=== PATIENT | female | born 1960 | race Caucasian/White ===

== ENCOUNTER 2020-12-10 15:22 | Emergency (ER) | payer MEDICARE, MEDICAID ==
[~2020-12-10] VITALS: Ht 170.2 cm; Wt 104.8 kg
[~2020-12-10 15:22] MED LIST: ACID CONTROL150 MG PO; ADULT LOW DOSE81 MG PO; AMLODIPINE BESY10 MG PO; DILAUDID2 MG PO; HYDROCHLOROTHIA25 MG PO; HYDROCODON-ACE1 EA11 PO; LEVOTHYROXINE200 MCG PO; LIPITOR40 MG PO; METOPROLOL SUCC25 MG PO; NORCO 7.5-3251 EACH PO; OMEPRAZOLE40 MG PO; PAROXETINE HCL20 MG PO; PROVENTIL HFA6.7 GM INH; ZYRTEC10 M3 PO
--- OUTSIDE RECORDS SUMMARY | 2020-12-10 15:24 | XMS ---
PreManage Notification: DEL TELLEZ Security Assembler Movement Events No recent Security Events currently on file CRITERIA MET - PDM CARE PROVIDERS CARLY WHITESIDE Physician Assistant Kunal LAYNE PHONE: [phone] Andrew has no Care Guidelines for this patient. E.D. V[facility]IT COUNT (12 MO.) [facility] TOTAL 5 NOTE: Visits indicate total known visits. ED/UCC VISIT TRACKING (12 MO.) 12/10/2020 15:23 [facility] [place] TYPE: Emergency COMPLAINT: - RIGHT SIDE PAIN/ INJ 10/17/2020 08:05 [facility] [place] TYPE: Emergency DIAGNOSES: - Hyperlipidemia, unspecified - Type 2 diabetes mellitus with hyperglycemia - Other custodial (current) drug therapy - Allergy status to other drugs, medicaments and biological substances - Arthrodesis status - Allergy status to narcotic agent - Strain of other muscles, fascia and tendons at shoulder and upper arm level, left arm, initial encounter - Other and unspecified overexertion or strenuous movements or postures, initial encounter - 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 - Unspecified place or not applicable - Essential (primary) hypertension - Hypothyroidism, unspecified 06/03/2020 09:15 [facility] [place] TYPE: Emergency DIAGNOSES: - ABD PAIN - Epigastric pain 05/23/2020 10:02 [facility] [place] TYPE: Emergency DIAGNOSES: - Epigastric pain - abdominal pain 05/22/2020 10:16 [facility] [place] [facility] [place] TYPE: Emergency COMPLAINT: - CHEST PAIN DIAGNOSES: - Essential (primary) hypertension - Hypothyroidism, unspecified - 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
[2020-12-10] MEDS ORDERED: LISINOPRIL10 MG PO (16:21)
[2020-12-10] MEDS ORDERED: TRULICITY1.5 MG/0.5 SUB-Q (16:21)
[2020-12-10] MEDS ORDERED: PANTOPRAZOLE SO40 MG PO (16:22)
[2020-12-10] MEDS ORDERED: METFORMIN HCL500 M1 PO (16:22)
[2020-12-10] MEDS ORDERED: SUCRALFATE1 GM PO (16:23)
[2020-12-10] MEDS ORDERED: ULTRAM50 MG PO (19:20)
== END 2020-12-10 19:35 | disposition home or self-care (01) ==
LOC: ED 15:22
DX: S39.011A Strain of muscle, fascia and tendon of abdomen, initial encounter (principal); E11.9 Type 2 diabetes mellitus without complications; I10 Essential (primary) hypertension; E78.5 Hyperlipidemia, unspecified; E03.9 Hypothyroidism, unspecified; F17.200 Nicotine dependence, unspecified, uncomplicated; W19.XXXA Unspecified fall, initial encounter; Z88.5 Allergy status to narcotic agent; Z88.8 Allergy status to other drugs, medicaments and biological substances; Z79.899 Other long term (current) drug therapy; Z79.84 Long term (current) use of oral hypoglycemic drugs; Z79.82 Long term (current) use of aspirin
CPT/HCPCS: 74177; 80053; 81001; 83690; 85025; 96374; 96375; 99284-25; J1885; J2405; J7030; Q9967

== ENCOUNTER 2024-04-02 08:50 | Inpatient (IN) | payer MEDICARE, OTHER ==
[~2024-04-02] VITALS: Ht 170.2 cm; Wt 104.5 kg
[~2024-04-02 08:50] MED LIST changes: -ACID CONTROL150 MG PO; -ADULT LOW DOSE81 MG PO; -AMLODIPINE BESY10 MG PO; +CEFAZOLIN SODIUM 2 GM/20 ML SYR IV SCH; -DILAUDID2 MG PO; +DULOXETINE HCL 60 MG CAP PO ONE; +GABAPENTIN 600 MG TAB PO SCH; -HYDROCHLOROTHIA25 MG PO; -HYDROCODON-ACE1 EA11 PO; +HYDROmorphone HCL 2 MG TAB PO ONE; +IBLOOD GLUCOSE TEST STRIP 1 EA TEST VI PRN; +INTRA-ARTICULAR ANALGESIC INJECTION XX SCH; +LACTATED RINGER'S 1,000 ML IV SCH; -LEVOTHYROXINE200 MCG PO; +LIDOCAINE HCL 1% 5 ML SDV INJ ONE; -LIPITOR40 MG PO; -METOPROLOL SUCC25 MG PO; -NORCO 7.5-3251 EACH PO; -OMEPRAZOLE40 MG PO; +OXYCODONE HCL 5 MG TAB PO SCH; +PANTOPRAZOLE SODIUM 40 MG TABEC PO SCH; -PAROXETINE HCL20 MG PO; -PROVENTIL HFA6.7 GM INH; +ROPIVACAINE IN 0.9% SOD CHL/PF 545 ML ELS.PMP.HR IRRIGATION SCH; +Ropivacaine HCl 20 MG/10 ML AMP ONE; +SODIUM CHLORIDE 0.9% 0 ML IV ONE; +TRANEXAMIC ACID IN NACL,ISO-OS 1,000 MG/100 ML PIGGYBACK IV SCH; -ZYRTEC10 M3 PO; +ondansetron HCL 4 MG TAB PO SCH
[2024-04-02] MEDS ORDERED: Ropivacaine HCl 20 MG/10 ML AMP ONE (09:43)
[2024-04-02] MEDS ORDERED: MIDAZOLAM HCL 2 MG/2 ML VIAL ONE (10:04)
[2024-04-02] MEDS ORDERED: dexmedeTOMIDine HCl 200 MCG/2 ML VIAL ONE (10:05)
[2024-04-02] MEDS ORDERED: Ropivacaine HCl 0.5% 30 ML VIAL ONE (10:05)
[2024-04-02] MEDS ORDERED: DEXAMETHASONE SOD PHOS 4 MG/ML VIAL ONE (10:05)
[2024-04-02] MEDS ORDERED: SODIUM CHLORIDE 0.9% 20 ML IV ONE (10:05)
[2024-04-02] MEDS ORDERED: LIDOCAINE HCL 2% 5 ML SDV ONE ×2 (10:05→10:40)
[2024-04-02] MEDS ORDERED: propofoL 200 MG/20 ML VIAL ONE ×3 (10:40→13:06)
[2024-04-02] MEDS ORDERED: ondansetron HCL 4 MG/2 ML VIAL ONE (10:40)
[2024-04-02] MEDS ORDERED: OXYCODONE HCL 5 MG TAB PO PRN (11:30)
[2024-04-02] MEDS ORDERED: KETOROLAC TROMETHAMINE 30 MG/ML VIAL IV PRN (11:30)
[2024-04-02] MEDS ORDERED: LIDOCAINE HCL 2% 20 MG/ML VIAL INJ ONE (11:57)
[2024-04-02] MEDS ORDERED: TRANEXAMIC ACID 1,000 MG/10 ML AMP ONE (12:50)
[2024-04-02] MEDS ORDERED: LACTATED RINGER'S 1,000 ML IV ONE (13:03)
[2024-04-02] MEDS ORDERED: NALOXONE HCL 0.4 MG SYR IV PRN (13:30)
[2024-04-02] MEDS ORDERED: fentaNYL citrate 50 MCG/ML SDV IV PRN (13:30)
[2024-04-02] MEDS ORDERED: droPERidol 5 MG/2 ML VIAL IV PRN (13:30)
[2024-04-02] MEDS ORDERED: IBLOOD GLUCOSE TEST STRIP 1 EA TEST VI PRN (13:30)
[2024-04-02] MEDS ORDERED: PROCHLORPERAZINE EDISYLATE 10 MG/2 ML VIAL IV PRN (13:30)
[2024-04-02] MEDS ORDERED: ondansetron HCL 4 MG/2 ML VIAL IV PRN (13:30)
[2024-04-02] MEDS ORDERED: HYDROmorphone HCL 1 MG/ML SYR IV PRN (13:30)
[2024-04-02] MEDS ORDERED: ALBUTEROL/IPRATROPIUM 3 ML NEB INH ONE (14:00)
--- NOTE | 2024-04-02 14:15 | NUR ---
04/02/24 1415 Mireille Johnson 1342-PT ARRIVES TO PACU VIA STRETCHER, RESTING SEMI FOWLERS. PT RESPONSIVE TO TACTILE STIMULI BUT RESTS W/ EYES CLOSED. VSS ON 6L VIA MASK. 1345-PT DESATING TO 84%, O2 INCREASED TO 10L SATS IMPROVED TO 92%, PT ENCOURAGED TO DEEP BREATH AND COUGH. 1350-PT DESATTING TO 74%, O2 INCREASED TO 15L AND PT FOLLOWING INSTRUCTIONS TO DEEP BREATH AND COUGH. SATS IMPROVED TO 97%. 1355-AUTOMOTIVE POWER ELECTRONICS ENGINEER AT BEDSIDE FOR RT KNEE POST OP XRAY. CRYO CUFF APPLIED TO RT KNEE PER ORDER. 1400-RT AT BEDSIDE TO ADMINISTER DUONEB PER ORDERS FROM [facility]. 1405-PT AWAKENS EASILY O2 TITRATED TO 10L, VS REMAIN STABLE. 1415-O2 TITRATED TO 6L, VS REMAIN STABLE. PT DEEP BREATHING AND COUGHING W/O PROMPTING. PT DENIES PAIN OR NAUSEA.
[2024-04-02] MEDS ORDERED: TRANEXAMIC ACID IN NACL,ISO-OS 1,000 MG/100 ML PIGGYBACK IV SCH (14:23)
--- NOTE | 2024-04-02 14:30 | NUR ---
PT ARRIVES TO DS DEPT FROM PACU VIA STRETCHER. PT REPORTS NO PAIN OR NAUSEA AT THIS TIME. PT IS A&O AND ON RA W/O2 >90%. RESPIRATIONS EVEN AND UNLABORED AT THIS TIME. REPORT RECEIVED FROM INA GORE, NO FAMILY AT BEDSIDE AT THIS TIME. DRESSING C/D/I. NISREEN HOSE, FOOT PUMPS, HEEL PROTECTORS, CRYO CUFF, AND ONQ @ [address] LUNCH ORDER PLACED. PT TOLERATING ICE WATER AND PUDDING W/NO ONSET OF NAUSEA OR DIFFICULTY SWALLOWING. CALL LIGHT WITHIN REACH. AUNT BROUGHT IN FROM HALLWAY AND SITTING AT BEDSIDE.
[2024-04-02] MEDS ORDERED: CEFAZOLIN SODIUM 2 GM/20 ML SYR IV SCH (15:00)
[2024-04-02] MEDS ORDERED: ACETAMINOPHEN 500 MG TAB PO SCH (15:00)
--- NOTE | 2024-04-02 15:15 | NUR ---
PT CONSUMED 50% OF LUNCH AND REPORTS FULL. NO ACUTE CHANGES FROM PREVIOUS ASSESSMENT. PT PROVIDED INCENTIVE SPIROMETER AND DEMONSTRATES CORRECT USAGE X3. PT CONTINUES TO TAKE DEEP BREATHS AND GOOD COUGHS. CALL LIGHT WITHIN REACH, PT REPORTS NO FURTHER QUESTIONS OR NEEDS AT THIS TIME.
--- NOTE | 2024-04-02 15:30 | NUR ---
THIS RN IN ROOM FOR ASSESSMENT AND VS. DRESSING C/D/I. SPINAL RESOLVED. PT ABLE TO MOVE FEET WITHOUT DIFFICULTY. AUNT REMAINS AT BEDSIDE. PT REPORTS PAIN IS 7 OR 8/10 AND STATES TOLERABLE, BUT WOULD LIKE TO GET SOMETHING ON BOARD IF POSSIBLE. THIS RN RECEIVES VO FROM EZEKIEL BRADY FOR 4 MG ORAL DILAUDID. TYLENOL AND ANCEF GIVEN (SEE EMAR). CALL LIGHT WITHIN REACH, PT REPORTS NO FURTHER NEEDS OR QUESTIONS AT THIS TIME.
[2024-04-02] MEDS ORDERED: HYDROmorphone HCL 4 MG TAB PO PRN (15:45)
--- NOTE | 2024-04-02 15:54 | NUR ---
[facility] W/PHYSICAL THERAPY IN ROOM TALKING W/PT AT THIS TIME.
--- NOTE | 2024-04-02 16:25 | NUR ---
PT BACK FROM PHYSICAL THERAPY. PER [facility] W/PHYSICAL THERAPY. PT HAS NOT PASSED. PT REPORTS NO CHANGE IN PAIN, BUT DECLINES NEED FOR PRN DILAUDID AT THIS TIME. NO ACUTE CHANGES TO DRESSING FROM PREVIOUS ASSESSMENT. VS TAKEN. EZEKIEL BRADY UPDATED ON PT CONDITION AND SPEAKS W/PT REGARDING UNABLE TO PASS PT. VO FOR INPATIENT ADMISSION RECEIVED AT THIS TIME. VO ALSO RECEIVED FROM [facility] 1 OR 2 TIMES A DAY INSTEAD OF PAROXETINE, ALONG WITH CONTINUATION OF ALL HOME MEDS. PT UPDATED ON INPATIENT STATUS AND AGREEABLE TO PLAN OF CARE. CONVICT GUARD GETTING ROOM # AT THIS TIME. CALL LIGHT WITHIN REACH, PT STATES NO FURTHER NEEDS OR QUESTIONS AT THIS TIME.
[2024-04-02] MEDS ORDERED: DEXTROSE 50% 50 ML SYR IV PRN ×2 (17:30)
[2024-04-02] MEDS ORDERED: DEXTROSE 5% 1,000 ML IV PRN (17:30)
[2024-04-02] MEDS ORDERED: GLUCAGON,HUMAN RECOMBINANT 1 MG/ML VIAL SUB-Q PRN (17:30)
[2024-04-02] MEDS ORDERED: IBLOOD GLUCOSE TEST STRIP 1 EA TEST XX PRN (17:30)
[2024-04-02] MEDS ORDERED: ALBUTEROL SULFATE 0.083% 3 ML VIAL INH PRN (17:30)
--- NOTE | 2024-04-02 17:42 | NUR ---
PT TO FLOOR VIA STRETCHER WITH BAO DARNELL. PT ABLE TO AMB TO BED ON OWN WO DIFFICULTY. VS STABLE. CPOX, SCDS, CRYO ETC IN PLACE.
--- NOTE | 2024-04-02 17:46 | NUR ---
1742-PT TAKEN TO ROOM 114. REPORT GIVEN TO CARLOS GORE. PT MOVED SELF TO BED WITH WALKER AND STAND BY ASSIST. BED RAILS UP. BED IN LOW POSITION AND WHEELS LOCKED. CALL LIGHT WITHIN REACH. ALL PERSONAL BELONGINGS WITH PT. CRYO CUFF IN PLACE AND RUNNING. FOOT PUMPS APPLLIED. HEEL FLOATS PLACED. NO OTHER NEEDS AT THIS TIME.
--- NOTE | 2024-04-02 19:36 | NUR ---
REPORT RECEIVED FROM DAY SHIFT RN. PT LYING IN BED ALERT AND ORIENTED. DENIES NEEDS. WHITE BOARD UPDATED. CALL LIGHT IN REACH.
[2024-04-02] MEDS ORDERED: ASPIRIN 325 MG TAB PO SCH (21:00)
[2024-04-02] MEDS ORDERED: SENNOSIDES 1 TAB PO SCH (21:00)
--- NOTE | 2024-04-02 21:32 | NUR ---
EVENING ASSESSMENT COMPLETE. SCHEDULED MEDS ADMIN PER EMAR. PT REPORTS RIGHT KNEE PAIN 08/30. NO PRN'S AVAILABLE. PT AGREES TO WAIT UNTIL AVAILABLE. SCHEDULED PAIN MEDS ADMIN. RIGHT KNEE DRESSING CDI. CMS INTACT. TEDS/HP/SCD'S/CRYO IN PLACE. ON-Q IN PLACE INFUSING AT 4ML/HR. PT DENIES FURTHER NEEDS AT THIS TIME. CALL LIGHT IN REACH.
--- NOTE | 2024-04-02 22:45 | NUR ---
PT UP TO BR WITH INFORMATION RESOURCES MANAGER ASSIST. BACK TO BED, NADIA WELL. REPORTS RIGHT KNEE PAIN 10/31. PRN FOR PAIN ADMIN PER EMAR. IV ABX ADMIN PER ORDER. PERSONAL FAN PROVIDED FOR NIGHT SWEATS. NO FURTHER NEEDS. BED ALARM FOR SAFETY.
--- NOTE | 2024-04-03 00:18 | NUR ---
CALL LIGHT ANSWERED. PT REPORTS NERVE PAIN IN RIGHT LEG THAT IS CHRONIC. ASSISTED TO REPOSITION FOR COMFORT. PT REPORTS RELIEF. VS AND I&O OBTAINED. NO FURTHER NEEDS. CALL LIGHT IN REACH.
--- NOTE | 2024-04-03 02:16 | NUR ---
PT UP TO BR WITH FWW AND SBA TO VOID. GAIT STEADY. BACK TO BED, NADIA WELL. ASSESSMENT UNCHANGED. SCD'S/TEDS/HP IN PLACE. FRESH ICE TO CRYO. CPOX IN PLACE. PT UTILIZING HOME CPAP. NO FURTHER NEEDS. CALL LIGHT IN REACH.
--- NOTE | 2024-04-03 03:04 | NUR ---
PT REPORTS RIGHT KNEE PAIN 9/10. PRN FOR PAIN ADMIN PER EMAR. NO FURTHER NEEDS.
--- NOTE | 2024-04-03 06:25 | NUR ---
PT RESTING IN BED. AWAKENS EASILY. UP TO BR WITH FWW AND SBA TO VOID 600 ML CLEAR YELLOW URINE. BACK TO BED, NADIA WELL. SCD'S/TEDS/HP IN PLACE. FRESH ICE TO CRYO. NO C/O PAIN AT THIS TIME. VS AND I&O OBTAINED. NO FURTHER NEEDS. CALL LIGHT IN REACH.
--- NOTE | 2024-04-03 08:39 | NUR ---
MORNING ASSESSMENT IS COMPLETE. PATIENT HAS 9/10 LOWER BACK PAIN RELATED TO SPINAL PUNCTURES, LIDOCAINE PATCH PLACED TO THIS SITE. MORNING MEDICATIONS GIVE, 4MG OF PO DILAUDID GIVEN FOR 9/10 RIGHT KNEE PAIN, SCD, NISREEN, CRYO CUFF IN PLACE. PATIENT HAD LEFT CALF PAIN 9/10 UPON ASSESSMENT AND THIS IS NEW. PLAN TO CALL DR. FALCON REGARDING THIS. PATIENT OTHERWISE HAS A GOOD APPETITE, IS SALINE LOCKED, 93% ON ROOM AIR WHILE AWAKE.
[2024-04-03] MEDS ORDERED: INSULIN GLARGINE-YFGN 100 UNIT/ML ML SUB-Q SCH (09:00)
[2024-04-03] MEDS ORDERED: LEVOTHYROXINE SODIUM 100 MCG TAB PO SCH (09:00)
[2024-04-03] MEDS ORDERED: DULOXETINE HCL 30 MG CAP PO SCH (09:00)
[2024-04-03] MEDS ORDERED: LIDOCAINE HCL 4% 1 EACH PATCH TD SCH (09:00)
[2024-04-03] MEDS ORDERED: CYCLOBENZAPRINE HCL 10 MG TAB PO SCH ×2 (09:00→21:00)
[2024-04-03] MEDS ORDERED: AMLODIPINE BESYLATE 10 MG TAB PO SCH (09:00)
[2024-04-03] MEDS ORDERED: LEVOTHYROXINE SODIUM 175 MCG TAB PO SCH (09:00)
[2024-04-03] MEDS ORDERED: cefuroxime axetiL 250 MG TAB PO SCH (09:00)
[2024-04-03] MEDS ORDERED: lisinopriL 10 MG TAB PO SCH (09:00)
[2024-04-03] MEDS ORDERED: CETIRIZINE HCL 10 MG TAB PO SCH (09:00)
--- NOTE | 2024-04-03 10:08 | NUR ---
MESSAGE LEFT WITH DR. FALCON THAT US IS NEGATIVE FOR DVT.
--- NOTE | 2024-04-03 10:09 | NUR ---
PATIENT RATES RIGHT KNEE AND BACK PAIN 7/10 AND IS COMFORTABLE AT THIS TIME.
--- NOTE | 2024-04-03 10:40 | NUR ---
Spoke with Fabienne. She would like to dc to [facility] in [place] on [place]. Her sisters and mom live there. She considered dc to mom's home, but mom is in her 80s, has steps into the home, and has Afib. Pt also states she recently injured her L knee and had surgery on her good R knee. Sheis having difficulty walking. I will fax her chart today to [facility] to check for bed availability. Pt denies needs and good support. Sister willd drive her to [place] on dc. Pt will need 2 more nights IP stay to qualify. She denies financial issues. She does use the food bank in [place] and uses food stamps.
--- NOTE | 2024-04-03 10:57 | NUR ---
MED REC COMPLETE
--- NOTE | 2024-04-03 11:18 | NUR ---
PT NOT AVAILABLE FOR VISIT. PROVIDED PRAYER.
--- NOTE | 2024-04-03 11:23 | NUR ---
UR CLINICAL REVIEW: 2 MN FOR [facility] CRITERIA FOR PAIN CONTROL [facility] 04/02/24 @ 4597 ORDER MATCHES REG CLINICALS FAXED TO [facility] FOR REVIEW POSSIBLE NEED FOR SNF PENDING FURTHER PT EVALUATION
--- NOTE | 2024-04-03 11:32 | NUR ---
PATIENT IS WORKING WITH OCCUPATIONAL THERAPY, AMBULATING TO BATHROOM WITH FWW AND SBA.
--- NOTE | 2024-04-03 13:10 | NUR ---
PATIENT GIVEN 4MG OF PO DILAUDID FOR 8/10 RIGHT KNEE PAIN. 30MG OF IV TORADOL GIVEN WELL. PATIENT REPORTS LIDOCAINE PATCH TO LOWER BACK IS EFFECTIVE. ICE WATER FILLED, ICE TO CRYO CUFF WELL. PATIENT IS OTHERWISE SITTING UP IN CHAIR, AWAITING PHYSICAL THERAPY THIS AFTERNOON.
--- NOTE | 2024-04-03 14:11 | NUR ---
PATIENT REPORTS PAIN IS 8/10 POST PAIN MEDICATIONS. PHYSICAL THERAPY IS HERE TO WORK WITH PATIENT.
--- NOTE | 2024-04-03 15:18 | NUR ---
PATIENT AMBULATED WITH PHYSICAL THERAPY, DID STAIRS. PATIENT REPORTED 10/10 PAIN AFTER PT. PATIENT BACK TO CHAIR, GIVEN SCHEDULED TYLENOL, CRYO CUFF IS ON.
--- NOTE | 2024-04-03 15:58 | NUR ---
ANSWERED PATIENT CALL LIGHT. BROUGHT PATIENT A VANILLA PUDDING AND SOME ARSLAN CRACKERS.
--- NOTE | 2024-04-03 16:23 | NUR ---
Face sheet, H&P from the office, labs, surgery note, progress note, PT note faxed to Laurence at [facility] in [place].
--- NOTE | 2024-04-03 16:36 | NUR ---
PATIENT GIVEN 4MG PO DILAUDID FOR 9/10 PAIN. ONQ PUMP HAS SMALL AMOUNT OF BLOOD UNDER DRESSING, A COUPLE DROPS ON PATIENT'S GOWN. KNEE GARDENIA WRAP HAS SLIPPED DOWN, ALL OF THIS ADJUSTED SO THAT ABD COVERS ONQ SITE. PATIENT IS USING I/S PATIENT REPORTS ALLERGIES, HAS A PRODUCTIVE SOUNDING COUGH, DENIES FEELING ILL.
--- NOTE | 2024-04-03 18:22 | NUR ---
PATIENT IS RESTING IN BED, ICE TO CRYO CUFF. NO OTHER NEEDS AT THIS TIME.
--- NOTE | 2024-04-03 19:23 | NUR ---
REPORT RECEIVED FROM DAY SHIFT RN. PT LYING IN BED ALERT AND ORIENTED. DENIES NEEDS. WHITE BOARD UPDATED. CALL LIGHT IN REACH.
--- NOTE | 2024-04-03 20:45 | NUR ---
EVENING ASSESSMENT COMPLETE. SCHEDULED MEDS ADMIN PER EMAR. PT REPORTS RIGHT KNEE PAIN 10/31. SCHEDULED PAIN MEDS ADMIN. UP TO BR WITH FWW AND SBA TO VOID. BACK TO BED, NADIA WELL. SCD'S/TEDS/HP/CRYO IN PLACE. RIGHT KNEE DRESSING CDI. SCANT AMOUNT SEROSANG DRAINAGE NOTED FROM ON-Q SITE. ON-Q INFUSING AT 4ML/HR. CMS INTACT. SCATTERED WHEEZE AND DRY COUGH NOTED. RT IN FOR NEB TX. SANDWICH BOX PROVIDED. PT DENIES FURTHER NEEDS. CALL LIGHT IN REACH.
[2024-04-03] MEDS ORDERED: LIDOCAINE PATCH REMOVAL 1 EA TD SCH (21:00)
--- NOTE | 2024-04-03 21:59 | NUR ---
PT RESTING WITH EYES CLOSED. AWAKENS UPON THIS RN ENTERING ROOM. REPORTS RIGHT LEG PAIN 9/10. PRN FOR PAIN ADMIN PER EMAR. NO FURTHER NEEDS.
--- NOTE | 2024-04-03 23:37 | NUR ---
PT RESTING IN BED WITH EYES CLOSED. RESPIRATIONS EVEN. HOME CPAP IN PLACE. BED ALARM FOR SAFETY. CALL LIGHT IN REACH.
--- NOTE | 2024-04-04 02:56 | NUR ---
PT RESTING IN BED WITH HOME CPAP IN PLACE. EYES CLOSED. RESPIRATIONS EVEN. BED ALARM FOR SAFETY. CALL LIGHT IN REACH.
--- NOTE | 2024-04-04 06:18 | NUR ---
CALL LIGHT ANSWERED. PT UP TO BR WITH FWW AND SBA TO VOID. BACK TO BED, NADIA WELL. GAIT STEADY. SCD'S/TEDS/HP IN PLACE. FRESH ICE TO CRYO. ASSESSMENT UNCHANGED. PT REPORTS RIGHT KNEE PAIN 10/31. PRN FOR PAIN ADMIN PER EMAR. VS AND I&O OBTAINED. NO FURTHER NEEDS. CALL LIGHT IN REACH.
--- NOTE | 2024-04-04 07:28 | NUR ---
RECIEVED SHIFT REPORT. PT IS RESTING IN BED, AWAKE. DENIES NEEDS AT THIS TIME. CALL LIGHT IN REACH.
[2024-04-04] MEDS ORDERED: INSULIN GLARGINE-YFGN 100 UNIT/ML ML SUB-Q SCH (09:00)
--- NOTE | 2024-04-04 10:00 | NUR ---
Progress note, PT/OT notes faxed to Laurence at [facility]. for update.
--- NOTE | 2024-04-04 10:03 | NUR ---
PT AWAKE IN BED, PAIN 9/10 SCHEDULED PAIN MEDICATION ADMINISTERED (PER EMAR). ASSESSED PT L LEG. UNWRAPPED GARDENIA WRAP, SURG DRESSING INTACT, NO DRAINAGE NOTED. SCANT DRAINGAGE BY ON Q PUMP SITE ABD BANDAGE APPLIED. WRAPPED WITH GARDENIA WRAP. CYRO CUFF APPLIED. DENIES NUMBNESS AND TINGLING. CALL LIGHT IN REACH. DENIES NEEDS.
--- NOTE | 2024-04-04 10:05 | NUR ---
PATIENT IN CHAIR AT THIS TIME. BAR HELPER CHARTED VITALS AND I&O'S. BAR HELPER ASSISTED PATIENT TO BATHROOM AND THEN BACK TO CHAIR. CALL LIGHT WITHIN REAACH, NO FURTHER NEEDS AT THIS TIME.
--- NOTE | 2024-04-04 10:10 | NUR ---
Spoke with Fabienne. She cont. to plan to discharge to [facility] to a [facility]. Let her know she has not been accepted yet, but still needs 1 more night for her 3 night IP stay.
--- NOTE | 2024-04-04 11:24 | NUR ---
PT AWAKE IN CHAIR, RT IN ROOM GIVING NEB TX PER PT REQUEST. CALL LIGHT IN REACH.
--- NOTE | 2024-04-04 12:00 | NUR ---
Received a call from Shelly at [facility]. She received the fax I sent this morning, but did not receive the fax from yesterday. Chart refaxed with H&P and labs from the office, PT notes, med list, and imaging.
--- NOTE | 2024-04-04 12:56 | NUR ---
PT AWAKE IN RECLINER, DENIES NEEDS AT THIS TIME. CALL LIGHT IN REACH
--- NOTE | 2024-04-04 14:04 | NUR ---
PATIENT IN CHAIR AT THIS TIME. CRYSTAL SLICER CHARTED VITALS AND I&O'S. CALL LIGHT WITHIN REACH, NO FURTHER NEEDS AT THIS TIME.
--- NOTE | 2024-04-04 14:32 | NUR ---
PT SITTING IN CHAIR, AWAKE AND ALERT, PT STATES (SHE HAS NO PAIN AT THIS TIME AND WOULD LIKE TO WALK WHEN SOMEONE IS FREE). PT HAS NO OTHER CONCERNS AT THIS TIME CALL LIGHT IN REACH.
--- NOTE | 2024-04-04 14:48 | NUR ---
VISITED DURING SPIRITUAL CARE ROUNDS. PT IN OVERALL GOOD SPIRITS, NO IMMEDIATE NEEDS. BRASS FINISHER PROVIDED SUPPORTIVE PRESENCE, HOSPITALITY, PRAYER, FACILITATED INTERACTION WITH THERAPY ANIMAL.
--- NOTE | 2024-04-04 16:17 | NUR ---
PT SITTING IN CHAIR WITH FRIEND PRESENT IN ROOM, PT HAS NO NEEDS AT THIS TIME CALL LIGHT IN REACH.
--- NOTE | 2024-04-04 17:52 | NUR ---
PT SITTING UP IN CHAIR, PT RIGHT KNEE HAS SCANT DRAINAGE FROM WORKING WITH PT EARLIER TODAY BUT NO NEW DRAINAGE AT THIS TIME. PT DENIES NEEDING PAIN MEDICATION AT THIS TIME CALL LIGHT IN REACH.
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
--- NOTE | 2024-04-04 20:35 | NUR ---
CALL LIGHT ANSWERED. SBA WITH FWW TO RESTROOM. pt COMPLAINS OF 8/10 PAIN IN RIGHT KNEE. PRN MEDICATION ADMINSITERED WITH PO SNACK. VSS. CRYO CUFF REFILLED WITH ICE AND IN PLACE. VFPs, NISREEN GOLDEN ON. PRIMARY RN UPDATED. CALL LIGHT AND PERSONAL SUPPLIES WITHIN REACH.
--- NOTE | 2024-04-04 23:07 | NUR ---
CALL LIGHT ANSWERED. PT NEEDED TO USE BATHROOM. DATA SYSTEMS MANAGER SBA WITH FWW TO BATHROOM. PT VOIDED AND ASSISTED BACK TO BED. PT STATES NO FURTHER NEEDS AT THIS TIME. CALL LIGHT WITHIN REACH.
--- NOTE | 2024-04-05 00:05 | NUR ---
ROUNDED ON PT. EYES CLOSED, RESP EVEN AND UNLABORED.
--- NOTE | 2024-04-05 02:17 | NUR ---
ROUNDED ON PT. LAYING ON BACK, OCCASSIONAL MOVEMENT NOTED IN RIGHT FOOT. RESP EVEN AND UNLABORED.
--- NOTE | 2024-04-05 05:27 | NUR ---
ORDER RUNNER OBTAINED VITALS AND I&O. PT UP TO BATHROOM. PT VOIDED AND NOW BACK IN BED. SCDS B ACK ON AND CRYO CUFF FILLED. WITH ICE. PT REQUESTING PAIN MED. RN NOTIFED. PT STATES NO FURTHER NEEDS AT THIS TIME. CALL LIGHT WITHIN REACH.
--- NOTE | 2024-04-05 05:43 | NUR ---
PT REQUESTED PAIN MEDICATION FOR 8/10 RIGHT KNEE PAIN. SETTING ON ON Q REMAINS AT 4. FOOT PUMPS, NISREEN HOSE IN PLACE. CRYO WITH FRESH ICE, ON RIGHT KNEE. PT EATING CRACKER AT THE MOMENT. FRESH ICE WATER AND GARBAGES EMPTIED. CALL LIGHT WITHIN REACH
--- NOTE | 2024-04-05 06:04 | NUR ---
PT HERE FOR RTK. A/O, RA. USES CALL LIGHT APPROPRIATELY, 1PA WITH FWW, STEADY. ON Q PUMP SET AT 4 THIS SHIFT. PAIN MANAGED WITH DILAUDID, MOST RECENTLY PAIN WAS 8/10 WHEN SHE WOKE UP. FOOT PUMPS, NISREEN, CRYO ICE ON KNEE. NO CHANGES NOTED IN ACEWRAP THIS SHIFT. SLEPT WELL, HOME CPAP USED.
--- NOTE | 2024-04-05 07:25 | NUR ---
MORNING REPORT RECIEVED FROM FINGER BUFF SEWER RN, PT LAYING IN BED AWAKE AND ALERT, PT HAS CONCERNS AT THIS TIME CALL LIGHT IN REACH.
--- NOTE | 2024-04-05 07:25 | NUR ---
Did not receive a call back from Shelly from [place] yesterday. Called and spoke with Latanya and she states they are waiting for auth. She will call the business office and call me back.
--- NOTE | 2024-04-05 07:27 | NUR ---
Updated Dr. London.
--- NOTE | 2024-04-05 08:15 | NUR ---
PT IN BED WITH FOOT PUMPS IN PLACE, PT EXPRESSES NO CONCERNS AT THIS TIME CALL LIGHT IN REACH.
--- NOTE | 2024-04-05 08:36 | NUR ---
DRAGLINE OPERATOR HELPER checked on patient, patient was currently with PT. Nothing else needed at this time.
--- NOTE | 2024-04-05 09:48 | NUR ---
PATIENT IN BED AT THIS TIME. SCAFFOLD SETTER CHARTED VITALS AND I&O'S. PATIENT WANTED TO HAVE SHOWER CAP FOR HAIR. CALL LIGHT WITHIN REACH, NO FURTHER NEEDS AT THIS TIME.
--- NOTE | 2024-04-05 10:39 | NUR ---
PT SITTING UP IN BED, PT HAS NO CONCERNS AT THIS TIME, PT DID ASK ABOUT DC INFORMATION AND WAS TOLD THERE IS NOT A SET TIME YET, PT WAS AGREEABLE. PT CALL LIGHT IN REACH.
--- NOTE | 2024-04-05 11:18 | NUR ---
PT IN BED, CASE MANAGEMENT IS IN ROOM, PT HAS NO NEEDS AT THIS TIME CALL LIGHT IN REACH.
--- NOTE | 2024-04-05 11:40 | NUR ---
Call from [facility]. They have not received auth. Dr London completed orders and faxed them to me. Orders, PASRR, progress note faxed to . Pt updated.
--- NOTE | 2024-04-05 12:38 | NUR ---
PT AMBULATED TO THE RESROOM SBA FWW PT THEN RETURNED TO EDGE OF BED, PT INSTRUCTED TO USE CALL LIGHT WHEN SHE DECIDES TO LAY BACK DOWN. PT VERBALIZED UNDERSTANDING. PT CALL LIGHT IN REACH AND NO CONCERNS AT THIS TIME.
--- NOTE | 2024-04-05 13:20 | NUR ---
PT LAYING IN BED WITH CRYO CUFF, AND FOOT PUMPS IN PLACE. PT DID STATES " SHE HAD PAIN IN HER RIGHT KNEE 10/31" PT WAS GIVEN PRN DILAUDID (SEE EMAR). PT HAS CALL LIGHT IN REACH.
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
--- NOTE | 2024-04-05 14:12 | NUR ---
CALLED TO ASK IF CASE MANAGEMENT COULD COME BACK IN, WINSTON IN CASE MANAGEMENT TO SEE THE PATIENT.
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
--- NOTE | 2024-04-05 14:57 | NUR ---
PT LAYING IN BED WITH CRYO CUFF AND FOOT PUMPS ON, PT IS CURRENTLY TALKING WITH ROLY MONTERO. PT CALL LIGHT IN PLACE, AND NO CONCERNS AT THIS TIME.
--- NOTE | 2024-04-05 15:17 | NUR ---
PT LAYING IN BED WITH HOB ELEVATED, PT WAS GOING TO TRY AND TAKE A NAP THEY STATED AND WERE GOING TO USE THEIR HOME CPAP. PT HAS NO CONCERNS AT THIS TIME CRYO CUFF HAS ICE AND IS IN PLACE CALL LIGHT IN REACH.
--- NOTE | 2024-04-05 15:40 | NUR ---
VERBAL REPORT RECEIVED FROM BAO STAPLETON AND BAO FAIRBANKS.
--- NOTE | 2024-04-05 16:10 | NUR ---
PT LAYING IN BED, PT RIGHT LEG DRESSING GARDENIA BANDAGE HAD BECOME LOSE DURING THE PT PT SESSION. PT RIGHT LEG WAS REWRAPPED BY THIS RN, AND CRYO CUFF IN PLACE WITH FOOT PUMPS. PT HAS NO CONCERNS AT THIS TIME AND CALL LIGHT IN REACH.
--- NOTE | 2024-04-05 16:51 | NUR ---
Texted Dr. London I have not received auth. Hopefully will receive tomorrow. Pt updated.
--- NOTE | 2024-04-05 17:33 | NUR ---
No auth at this time. Will contact in the am.
--- NOTE | 2024-04-05 17:40 | NUR ---
PT RESTING IN BED WATCHING TV AT THIS TIME. CRYOCUFF IN PLACE AT THIS TIME TO (R) KNEE, PT C/O 08/30 PAIN TO KNEE. PRN MEDS GIVEN - SEE APR. PT DID NOT ENJOY THE DINNER, REQUESTED SOMETHING ELSE FROM [facility] ALREADY. ALL PT CARE NEEDS MET AT THIS TIME, CALL LIGHT WITHIN REACH. WILL CONTINUE TO MONITOR.
--- NOTE | 2024-04-05 18:25 | NUR ---
PATIENT WAS IN BED AT THIS TIME AND NEEDED ASSISTANCE TO THE RESTROOM. THEN BACK TO HER CHAIR. CALL LIGHT WITHIN REACH, NOTHING ELSE NEEDED AT THIS TIME.
--- NOTE | 2024-04-05 18:50 | NUR ---
Cryo cuff container refilled and reset.
--- NOTE | 2024-04-05 19:29 | NUR ---
REPORT RECEIVED FROM DAY SHIFT RN. PATIENT RESTING IN CHAIR. DENIES NEEDS AT THIS TIME. CALL LIGHT IN REACH.
--- NOTE | 2024-04-05 20:42 | NUR ---
PATIENT RESTING IN BED. VS AND I&Os OBTAINED AND RECORDED. PATIENT UP FROM CHAIR TO BATHROOM WITH MINIMAL SBA AND FWW TO VOID. PATIENT TO BED. CRYO CUFF IN PLACE. SCDs IN PLACE. R KNEE DRESSING C/D/I. PATIENT REQUESTING TO BE ON A 60G CARB DIET. THIS RN CHANGED DIET ORDER. PATIENT HAS NO FURTHER NEEDS. CALL LIGHT IN REACH.
--- NOTE | 2024-04-05 21:45 | NUR ---
PATIENT RESTING IN BED. DENIES NEEDS AT THIS TIME. CALL LIGHT IN REACH.
--- NOTE | 2024-04-05 22:37 | NUR ---
CALL LIGHT ANSWERED. PATIENT REQUESTING PAIN MEDICATION FOR 9/10 PAIN. PRN PAIN MEDICATION ADMINISTERED. PATIENT HAS NO FURTHER NEEDS. CALL LIGHT IN REACH.
--- NOTE | 2024-04-06 00:42 | NUR ---
PATIENT RESTING IN BED ON BACK WITH EYES CLOSED. RESPIRATIONS EVEN AND UNLABORED. CALL LIGHT IN REACH.
--- NOTE | 2024-04-06 02:31 | NUR ---
CALL LIGHT ANSWERED. PATIENT UP TO BATHROOM USING MINIMAL SBA TO VOID. PATIENT BACK TO BED. FRESH ICE PLACED IN CRYO CUFF. CRYO CUFF PLACED ON R KNEE WITH BARRIER PLACED. SCDs IN PLACE. PATIENT HAS NO FURTHER NEEDS. CALL LIGHT IN REACH.
--- NOTE | 2024-04-06 05:10 | NUR ---
PRN PAIN MEDICATION ADMINISTERED PER PATIENT REQUEST. PATIENT HAS NO FURTHER NEEDS. CALL LIGHT IN REACH.
--- NOTE | 2024-04-06 09:19 | NUR ---
Patient reports she slept well last night, no acute distress. Patient up to restroom, tolerated well with FWW. On-Q in place, appears to be working appropriately. Patient reports 7/10 right knee pain. Admin scheduled tylenol and dilaudid 4mg po at this time. Patient denies needs at this time.
--- NOTE | 2024-04-06 09:29 | NUR ---
PATIENT IS IN HER CHAIR AT THIS TIME, SCALE TESTER CHARTED VITALS AND I&O'S. CALL LIGHT WITH IN REACH. NOTHING ELSE NEEDED AT THIS TIME.
--- NOTE | 2024-04-06 09:50 | NUR ---
Called and spoke with Latanya at [facility]. They have not received auth. I will fax PT and progress notes when completed. Updated Fabienne. She denies any communication with her insurance today.
--- NOTE | 2024-04-06 11:09 | NUR ---
VISITED DURING SPIRITUAL CARE ROUNDS. PT IN OVERALL GOOD SPIRITS, LOOKING FORWARD TO DISCHARGE IN DUE TIME, NO IMMEDIATE NEEDS, ALTHOUGH PT EXPRESSED NAUSEA NEAR END OF VISIT. INFORMED NURSING STAFF. CAFE COOK PROVIDED SUPPORTIVE CARE, HOSPITALTIY, ADVOCATED FOR PT, PROVIDED PRAYER. PT EXPRESSED GRATITUDE.
--- NOTE | 2024-04-06 13:05 | NUR ---
Patient sitting up in chair watching tv, no distress. Patient reports 6/10 right knee pain, admin dilaudid 4mg po at this time. Cryo-cuff ice replaced at this time. CMS intact to RLE. ON-Q pump remains intact.
--- NOTE | 2024-04-06 13:55 | NUR ---
PATIENT IS IN THE CHAIR AT THIS TIME. RUBBER MILL TENDER CHARTED VITALS AND I&O'S. CALL LIGHT WITH IN REACH, NOTHING ELSE NEEDED AT THIS TIME.
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
--- NOTE | 2024-04-06 15:00 | NUR ---
I recieved a call from Latanya at [facility]. They have not received auth. I updated about conversation with pt. They will accept pts on the weekend. The pts insurance auth department is open on the weekend. I gave Latanya my home number to call if they get auth this weekend. Dr. London is willing to dc pt over the weekend if she is accepted. Orders have been faxed. I reviewed the IM letter with Fabienne, in case she discharges over the weekend.
--- NOTE | 2024-04-06 15:40 | NUR ---
PT SITTING UP IN THE CHAIR, VISITING WITH FAMILY/FRIEND. SCHEDULED TYLENOL GIVEN, PT REPORTS 08/30 TO (R) KNEE. GARDENIA WRAP REAPPLIED, ASSISTED WITH MOVING CRYO TO THE BACK PART OF KNEE, ALTERNATING SITES. PT DENIES ANY FURTHER NEEDS, CALL LIGHT WITHIN REACH.
--- NOTE | 2024-04-06 17:58 | NUR ---
PATIENT IS IN BED AT THIS TIME. NEEDED ASSISTANCE TO THE RESTROOM, BACK TO BED. CHIEF RESOURCE OFFICER CHARTED VITALS AND I&O'S. CALL LIGHT WITH IN REACH, NOTHING ELSE NEEDED AT THIS TIME.
--- NOTE | 2024-04-06 20:51 | NUR ---
awake, alert and oriented to all. Pleasant and cooperative. turns and repositions in bed. On room air, lungs clear, regular heart rate and rhythm, abd soft, stated LBM 04/02. SL LW patent. Q pump RTK covered with johana wrap, josh kamilaose, cryocuff, foot pumps in place, elevated with rolled up towels at ankles. Up to BRP, 1PSBA/FWW. voided, back to bed, tolerated very well. medicated wth scheduled ASA and Tylenol 09/30 pain on return. tolerating liquids well.
--- NOTE | 2024-04-06 22:44 | NUR ---
RESTING, EYES CLOSED, USING HOME CPAP. NO S/SX DISTRESS. NIKA PUMP-CRYOCUFF R KNEE. TEDHOSE, FOOT PUMPS IN PLACE, TURNS AND REPOSITIONS SELF IN BED
--- NOTE | 2024-04-06 23:27 | NUR ---
USED CALL LIGHT, UP TO BRP, VOIDED, 1PASBY/FWW, BACK TO BED, TOLERATED WELL. C/O 10/31 RK AND BACK PAIN. MEDICATED WITH DILAUDID 4MG PO. PUDIN AND CRACKERS GIVEN ON REQUESTS. REPOSITIONS SELF IN BED
--- NOTE | 2024-04-07 01:29 | NUR ---
RESTING, EYES CLOSED, USING HOME CPAP, CRYOCUFF TO RTK, PAIN PUMP IN PLACE, SCDS TEDHOSE IN PLACE.
--- NOTE | 2024-04-07 03:33 | NUR ---
resting, eyes closed, using home cpap, cryocuff in place.
--- NOTE | 2024-04-07 04:33 | NUR ---
Used call light. Up to BRP, voided large amounts of clear yellow urine, back to bed. SBY/fww, tolerated very well. gets into bed and repositions self. On room air, dressingto RK intact. painpump inplace. cryocuff tedhose/foot pumps in place. elevated heelw eith rolled up towels. C/o 810 RK and back pain, medicated with Dilaudid 4mg po.
--- NOTE | 2024-04-07 07:30 | NUR ---
Patient in bed resting, eyes closed, respirations even and non labored. Patient has cpap machine in place, no distress. SCD's in place. Call light within reach.
--- NOTE | 2024-04-07 08:33 | NUR ---
PATIENT WAS IN BED AT THIS TIME. LEARNING AND DEVELOPMENT MANAGER ASSISTED PATIENT TO THE REST ROOM AND BACK TO BED. PUT CRYO CUFF BACK ON, AND REFILLED CRYO CUFF. LEARNING AND DEVELOPMENT MANAGER CHARTED VITALS AND I&O'S, CALL LIGHT WITH IN REACH. NOTHING ELSE NEEDED AT THIS TIME.
--- NOTE | 2024-04-07 09:26 | NUR ---
Patient watching tv, alert and oriented x4, no distress. Patient reports 6/10 right knee pain. Admin scheduled tylenol and prn toradol 30mg iv at this time. Cryocuff ice replaced. CMS intact to RLE. Patient reports she slept well, no current needs. Personal supplies and call light within reach.
--- NOTE | 2024-04-07 11:11 | NUR ---
Patient done with physical therapy, she reports tolerating well. Patient requesting pain medication for reported 7/10 RLE pain. Admin dilaudid 4mg po at this time. Cryocuff and scd's in place. CMS intact to RLE. Patient denies needs at this time. Personal supplies and call light within reach.
--- NOTE | 2024-04-07 13:40 | NUR ---
AJITH AND I REFILLED PATIENT'S CRYO.
--- NOTE | 2024-04-07 13:44 | NUR ---
PATIENT REPORTS PAIN 8/10 TO RIGHT KNEE, XIE AND RIGHT HIP AND GROIN AREA. PATIENT REPORTS THIS PAIN STARTED 04/06/24. COLD THERAPY DEVICE IN PLACE AND FUNCTIONING. SCDS IN PLACE AND FUNCTIONING. PATIENT DENIES FURTHER NEEDS AT THIS TIME. CALL LIGHT IN REACH.
[2024-04-07] MEDS ORDERED: POLYETHYLENE GLYCOL 3350 1 PACKET PO SCH (14:20)
--- NOTE | 2024-04-07 14:20 | NUR ---
MD ARRIVED TO ROUND ON PT, PER PRIMARY RN PT HAS NO BOWEL MOVEMENT SINCE 04/01, DID HAVE A MEDIUM STOOL THIS AFTERNOON. REQUESTING ORDER FOR MIRALAX, ORDER INPUT. PRIMARY RN UPDATED.
--- NOTE | 2024-04-07 14:37 | NUR ---
Patient awake watching tv, no distress. Pt reports 7/10 right knee pain. Admin scheduled tylenol and prn dilaudid 4mg po. CMS intact to RLE at this time. Patient denies further needs, call light within reach.
--- NOTE | 2024-04-07 17:28 | NUR ---
PATIENT STATES SHE IS CONCERNED HER LEG APPEARS MORE SWOLLEN. I RECOMMENDED PATIENT WALK AROUND UNIT IF SHE FEELS UP TO IT FOLLOWED BY COLD THERAPY TO AFFECTED LEG. PATIENT DENIES INCREASED PAIN. NO FURTHER NEEDS AT THIS TIME. DIGITAL TRAFFIC COORDINATOR IN ROOM. CALL LIGHT IN REACH.
--- NOTE | 2024-04-07 17:29 | NUR ---
PATIENT WAS IN BED AT THIS TIME, WASHING MACHINE INSTALLER PROVIDED ASSISTANCE TO THE BATHROOM. PATIENT WANTED TO GO FOPR A WALK, NURSE APPROVED. CAME BACK TO ROOM AND WENT BACK TO THE CHAIR. WASHING MACHINE INSTALLER REFILLED CRYO CUFF AND PLACED IT ON KNEE. WASHING MACHINE INSTALLER CHARTED VITALS AND I&O'S, CALL LIGHT WITH IN REACH. NOTHING ELSE NEEDED AT THIS TIME.
--- NOTE | 2024-04-07 18:04 | NUR ---
PRIMER WATERPROOFING MACHINE OPERATOR ASSISTED WITH A BED BATH, CHANGED LINENS, NEW GOWN, AND GOT FRESH WATER AND AN ICE PACK FOR RESIDENT. CALL LIGHT WITH IN REACH NOTHING ELSE NEEDED AT THIS TIME.
--- NOTE | 2024-04-07 20:33 | NUR ---
DEL IS COMPLIANT WITH HER HOME CPAP +8.
--- NOTE | 2024-04-07 20:45 | NUR ---
Pt awake, alert and oriented to all. sitting up position in bed. 1PSBY assit/FWw to BRP, voided, back to bed. repositions self in bed. On room air, lungs cler bilat, no sob stated, uses home cpap at bedside. abd soft, BENJAMIN, LBM earlier today, mom second dose given. med teaching done on ceftin abx and mom. stated understanding. c/o edema to upper thich, no chgnes from yesterday, trace to below knee area to ankles, Qpump in place, incision RK covered with johana wrap, cryocuff in place, tedhose and foot pumps in place. elevated with rolled up towels under ankles. c/ok and Rknee pain, medicated with Dilaudid 4mg po. tolerating liquids well. applesauce given on requests. watching tv
[2024-04-07] MEDS ORDERED: MAGNESIUM HYDROXIDE 30 ML UDC PO SCH (21:00)
--- NOTE | 2024-04-07 21:40 | NUR ---
REPLACED SCD'S WITH NEW FOOT SLEEVES.
--- NOTE | 2024-04-07 22:09 | NUR ---
SITTING UP POSITION IN BED, WATCHING TV, REPOSITONING HOME CPAP ON BY SELF AT THIS TIME. NO FURTHER C/O PAIN, AMBULATED EARLIER WITH AOC OPERATIONS INTELLIGENCE CHIEF, TOLERATED WELL. SCDS IN PLACE, NISREEN CARPENTERE, CRYOCUFF AND QPUMP R KNEE.
--- NOTE | 2024-04-08 00:06 | NUR ---
Resting, using home CPAP, no s/sx distress cryocuff and pain pump to R knee area, dressing with old drainage. foot pumps in place
--- NOTE | 2024-04-08 01:50 | NUR ---
CALL LIGHT ANSWERED. SBA TO RESTROOM WITH FWW FOR VOID. BACK IN BED WITH CRYO CUFF, VFPs BACK ON. CALL LIGHT AND PERSONAL SUPPLIES IN REACH. pt REQUESTS PRN PAIN MEDICATION, PRIMARY RN NOTIFIED.
--- NOTE | 2024-04-08 05:31 | NUR ---
Used call light, up to BRP, voided large amount of clear yellow urine. no c/o pain at this time. Back to bed 1pa/fww. qpump and cryocuff to maría elena DIETZ nad foot scds in place, rolled up towels under heels. repositions self in bed. pleasant and cooperative
--- NOTE | 2024-04-08 06:50 | NUR ---
used call light. c/o 10/31 back and r knee pain, medicated with dilaudid 4mg po
--- NOTE | 2024-04-08 07:25 | NUR ---
THIS RN IN WITH STUDENT NURSE. REPORT RECEIVED FROM EXAMINER RATING CLERK RN. PATIENT RESTING IN BED. DRESSING TO RIGHT KNEE CDI. CRYO CUFF IN PLACE. SCD'S ON AND FUNCTIONING WNL. PATIENT DENIES ANY NEEDS AT THIS TIME. CALL LIGHT WITHIN REACH.
--- NOTE | 2024-04-08 07:40 | NUR ---
THIS STUDENT NURSE WITH PRIMARY NURSE JORDAN LEMA RN. RECEIVED REPORT FROM CUSTOMER COUNTER REPRESENTATIVE NURSE. PATIENT RESTING IN BED SUPINE. SCDS ON AND FUNCTIONING. DRESSING CDI TO RIGHT LEG. CRYOCUFF ON AND FUNCTIONING TO RIGHT LEG. CALL LIGHT IN REACH. NO FURTHER NEEDS AT THIS TIME.
--- NOTE | 2024-04-08 08:15 | NUR ---
THIS RN IN ROOM WITH STUDENT RN. SALAZAR ASSISTED FROM RECLINER TO BATHROOM. NOTED ON-Q PUMP CATHERTER NOT INTACT WITH KNEE. DRESSING TO SITE REMAINS INTACT. NOTIFIED. OF PUMP NOT BEING IN PLACE. NO NEW ORDERS.
--- NOTE | 2024-04-08 08:44 | NUR ---
Board has been updated and call light has been placed within reach
[2024-04-08] MEDS ORDERED: POLYETHYLENE GLYCOL 3350 1 PACKET PO SCH (09:00)
--- NOTE | 2024-04-08 09:33 | NUR ---
SHIFT ASSESSMENT COMPLETE. EXPIRATORY WHEEZES APPRECIATED THROUGHOUT LUNGS WITH BOTH INSPIRATORY AND EXPIRATORY WHEEZES APPRECIATED UPON POSTERIOR LOWER LUNG ASSESSMENT. PATIENT IS COUGHING AT THIS TIME PERIODICALLY. PATIENT REPORTS LARGE AMOUNTS OF SPUTUM PRODUCTION THAT IS THICK AND CLEAR. PATIENT REPORTS MILD SOB AND IS REQUESTING NEB TREATMENT IF AVAILABLE AT THIS TIME FOR HISTORY OF ASTHMA. BOWEL TONES ACTIVE X4. A/O X4. GENERALIZED EDEMA TO RIGHT EXTREMITY WITH PALPABLE PULSES AND CAP REFILL LESS THAN 3 SECONDS TO BLE. SENSATION INTACT TO BLE. SCDS ON AND FUNCTIONING. CRYOCUFF ICE REPLENISHED AND CRYOCUFF ON AND FUNCTIONING. STRENGTH EQUAL TO BILATERAL UPPER EXTREMITIES AND PALPABLE RADIAL PULSES. NO FURTHER NEEDS AT THIS TIME. CALL LIGHT IN REACH.
--- NOTE | 2024-04-08 10:55 | NUR ---
PATIENT RESTING IN BED. PATIENT REPORTS PAIN IS 9/10 AND REQUESTING DILAUDID AT THIS TIME. SEE MAR. PATIENT REPORTS SOB IMPROVED AND COUGH IMPROVED SINCE RT ASSESSED AND TREATED WITH NEB. NO FURTHER NEEDS AT THIS TIME. CALL LIGHT IN REACH.
--- NOTE | 2024-04-08 11:00 | NUR ---
REPORT GIVEN TO BAO BENITEZ.
--- NOTE | 2024-04-08 11:27 | NUR ---
PT RESTING IN BED WATCHING TV SCD'S IN PLACE. SHE AGREES SHE IS COMFORTABLE NEEDED ITEMS IN REACH CALL LIGHT IN LAP. REPORT RECEIVED AND CARE ASSUMED FROM PRIMARY RN. PT DENIES NEEDS OF AT THIS TIME
--- NOTE | 2024-04-08 12:13 | NUR ---
PT SITTING UP IN BED WATCHING TV NOON MEAL SERVED PT DENIES NEEDS OF ANYTHING
--- NOTE | 2024-04-08 13:01 | NUR ---
PT WORKS WITH P/T AFTER NOON MEAL RETURNS TO BED TO REST PAIN MEDS ADMINISTERED PER REQUEST 09/30 PAIN. NEEDED ITEMS IN REACH DENIES OTHER NEEDS
--- NOTE | 2024-04-08 14:50 | NUR ---
PT SITTING UP IN BED WATCHING TV SHE IS UPBEAT AND TALKATIVE DENIES NEEDS. CRYO REFRESHED
--- NOTE | 2024-04-08 15:58 | NUR ---
PT IS UP IN THE CHAIR WATCHING TV CALL LIGHT IN REACH DENIES NEEDS OF
--- NOTE | 2024-04-08 17:46 | NUR ---
PT CONTINUES UP IN THE CHAIR WATCHING TV EATS 100% OF EVENING MEAL DENIES NEED OF ANYTHING ELSE
--- NOTE | 2024-04-08 20:43 | NUR ---
AWAKE, ALERT AND ORIENTED TO ALL, PLEASANT AND COOPERATIVE. ON ROOM AIR, USES HOME CPAP AT HS. LUNGS CLEAR BILAT, ABD HOS LARGE, SOFT, C/O LUPPERMID ABD SMALL OVAL SHAPED MASS WITH SMALL AMOUNT OF PAIN. WILL NOTIFY MD, PT AWARE TO NOTIFY PCP AFTER DC FOR F/U IF ICNREAED ABD PAIN R/T MASS. RKNEE DRESSING IN PLACE. QPUMP IN PLACE, EDEMA TO THIGH AND BELOW KNEE AREA 1+, TEDHOSE FOOT SCDS OFF AT THIS TIME. R KNEE CRYOCUFF IN PLACE. SL PATENT RW. MEDICATED WITH DILAUDID 4MF PO PER BACK AND RK PAIN. WATCHING TV AT THIS TIME
--- NOTE | 2024-04-08 22:58 | NUR ---
RESTING, EYES CLOSED, USING HOME CPAP, NO S/SX DISTRESS CRYOCUFF IN PLACE, SCDS ON, NISREEN HOSE OFF
--- NOTE | 2024-04-08 23:34 | NUR ---
used call light, up to BRP, voided, back to bed. tolerated well, 1PA/FWW. scds back on rolled up towels under ankles.
--- NOTE | 2024-04-09 02:35 | NUR ---
CALL LIGHT ANSWERED. 1 PA/SBA TO THE BATHROOM AND BACK IN BED. CRYO AND SCD'S BACK ON. CRYO REFILLED.
--- NOTE | 2024-04-09 02:40 | NUR ---
Resting, eyes closed, using home CPAP, no s/sx distress. cryocuff to R knee, SCD in place.
--- NOTE | 2024-04-09 02:59 | NUR ---
Used call light, up to BRP, voided, back to bed minimum of assit 1pa/fww, repositions self in bed. Robert hose back on. foot scds in place. dressing to R knee no changes. cryocuff to R knee, rolled up towels under ankles. c/o R knee pain, medicated with Dilaudid 4mg po. Qpump was removed earlier
--- NOTE | 2024-04-09 05:22 | NUR ---
Awakens easily, using home CPAP. no c/o pain or distress. R knee dressing no chnges. cryocuff to R knee, josh hose and scds in place. repositions self inbed
--- NOTE | 2024-04-09 07:25 | NUR ---
PT WEARING CPAP AND APPEARS TO BE SLEEPING SOUNDLY AT TIME OF SHIFT REPORT, LEFT UNDISTURBED. CALL LIGHT AND NEEDED ITEMS IN REACH
--- NOTE | 2024-04-09 08:23 | NUR ---
PATIENT IN BED AT THIS TIME. WATERWORKS PUMP STATION OPERATOR WENT INTO PATIENTS ROOM FOR HOURLY ROUNDS. CALL LIGHT WITHIN [facility], NO FURTHER NEEDS AT THIS TIME.
--- NOTE | 2024-04-09 08:33 | NUR ---
PT FINISHES MORNING MEAL SITTING UP IN BED WATCHING TV DENIES NEEDS AT THIS TIME. ANTICIPATES DC TODAY, AGREES SHE IS READY
--- NOTE | 2024-04-09 09:00 | NUR ---
Called and spoke with Siena at [facility]. Their business office is closed for the holiday, but they have not received auth. I spoke with our UR and she will call and check [facility]'s auth department is open today and if they have made a decision.
--- NOTE | 2024-04-09 09:24 | NUR ---
PT WORKING WITH P/T.
--- NOTE | 2024-04-09 09:42 | NUR ---
PATIENT IN CHAIR AT THIS TIME. FILM RECORDIST CHARTED VITALS AND I&O'S. PATIENT TOOK BED BATH AND USED SHOWER CAP. CALL LIGHT WITHIN REACH, NO FURTHER NEEDS AT THIS TIME.
--- NOTE | 2024-04-09 10:02 | NUR ---
PT UP IN THE CHAIR STATES SHE FELT P/T WENT WELL. PT IS LOOKING FORWARD DC TODAY.
--- NOTE | 2024-04-09 10:37 | NUR ---
PATIENT IN BED AT THIS TIME. STREET COMMISSIONER ASSISTED PATIENT BACK INTO BED FROM CHAIR. CALL LIGHT WITHIN REACH, NO FURTHER NEEDS AT THIS TIME.
--- NOTE | 2024-04-09 11:10 | NUR ---
Received a call from Theresa at [facility]. She was able to reach [employer]. Auth has not been completed at this time.
--- NOTE | 2024-04-09 11:30 | NUR ---
Notified by Dr. London he plans on discharging this pt to home. He spoke with PT and feels pt is safe to dc to home with family today.
--- NOTE | 2024-04-09 11:55 | NUR ---
DRESSING CHANGED PER DR FALCON. PT FAMILY ARE HERE PT IS GETTING DRESSED FOR DC. DECLINES NEED OF ASSIST
[2024-04-09 11:57] VITALS: BP 166/82
== END 2024-04-09 12:45 | disposition home or self-care (01) | DRG 470 ==
LOC: DS 08:50 → MS 16:50
PROVIDERS: ADMIT Specialist; ATTEND Specialist
PROC: 0SRC0JZ Replacement of Right Knee Joint with Synthetic Substitute, Open Approach (ICD-10-PCS; principal; 2024-04-02)
DX: M17.11 Unilateral primary osteoarthritis, right knee (principal); I10 Essential (primary) hypertension; K21.9 Gastro-esophageal reflux disease without esophagitis; E78.5 Hyperlipidemia, unspecified; E87.6 Hypokalemia; F41.9 Anxiety disorder, unspecified; F32.9 Major depressive disorder, single episode, unspecified; G47.33 Obstructive sleep apnea (adult) (pediatric); M25.761 Osteophyte, right knee; E03.9 Hypothyroidism, unspecified; Z88.5 Allergy status to narcotic agent; Z88.8 Allergy status to other drugs, medicaments and biological substances; Z79.82 Long term (current) use of aspirin; Z79.890 Hormone replacement therapy; Z79.4 Long term (current) use of insulin; Z79.85 Long-term (current) use of injectable non-insulin antidiabetic drugs; Z92.21 Personal history of antineoplastic chemotherapy; Z92.3 Personal history of irradiation; Z87.891 Personal history of nicotine dependence; Z85.850 Personal history of malignant neoplasm of thyroid
CPT/HCPCS: 01400; 64447; 73560; 76942; 93971; 94640; 94760; 97110; 97116; 97161; 97165; 97530; 97535; A9270; C1713; C1776; J0690; J1100; J1885; J2003; J2250; J2405; J2704; J2795; J7030; J7121

== ENCOUNTER 2024-11-05 08:55 | Inpatient (IN) | payer MEDICARE, OTHER ==
--- NOTE | 2024-11-03 09:34 | NUR ---
ATTEMPTED TO CALL PT TO GIVE ARRIVAL TIME FOR OR CASE ON TUESDAY. NO ANSWER AND NO VOICEMAIL AVAILABLE
--- NOTE | 2024-11-04 14:06 | NUR ---
SPOKE WITH PT AND GAVE ARRIVAL TIME OF 0900
[~2024-11-05] VITALS: Ht 170.2 cm; Wt 95.0 kg
[~2024-11-05 08:55] MED LIST changes: +ACETAMINOPHEN500 MG PO; +ACID CONTROL150 MG PO; +ADULT ASPIRIN R81 MG PO; +ADULT LOW DOSE81 MG PO; +AMLODIPINE BESY10 MG PO; +ASPIRIN325 MG PO; +CEFAZOLIN SODIUM 2 GM in SODIUM CHLORIDE 0.9% 100 ML IV SCH; -CEFAZOLIN SODIUM 2 GM/20 ML SYR IV SCH; +CEFUROXIME250 MG PO; +CYCLOBENZAPRINE10 MG PO; +CYMBALTA30 MG PO; +DICLOFENAC SODI75 MG PO; +DILAUDID2 MG PO; +DILAUDID4 MG PO; -DULOXETINE HCL 60 MG CAP PO ONE; +DULOXETINE HCL 60 MG CAP PO SCH; +EPINEPHRIN0.3 MG/0.3 IM; -GABAPENTIN 600 MG TAB PO SCH; +HYDROCHLOROTHIA25 MG PO; +HYDROCODON-ACE1 EA10 PO; +HYDROCODON-ACE1 EA11 PO; -HYDROmorphone HCL 2 MG TAB PO ONE; +LIPITOR40 MG PO; +LISINOPRIL10 MG PO; +METFORMIN HCL500 M1 PO; +METOPROLOL SUCC25 MG PO; +MULTIVITAMIN1 EACH PO; +NORCO 7.5-3251 EACH PO; +OMEPRAZOLE40 MG PO; -OXYCODONE HCL 5 MG TAB PO SCH; +PANTOPRAZOLE SO40 MG PO; +PAROXETINE HCL20 MG PO; +SENNA LAX8.6 MG PO; -SODIUM CHLORIDE 0.9% 0 ML IV ONE; +SUCRALFATE1 GM PO; +SYNTHROID175 MCG PO; +TRAMADOL HCL50 MG PO; +TRESIBA FL100 UNIT/1 SUB-Q; +TRULICITY1.5 MG/0.5 SUB-Q; +ULTRAM50 MG PO; +VENTOLIN HFA18 GM INH; +VITAMIN B-1000 MCG/1 PO; +ZYRTEC10 MG PO; -ondansetron HCL 4 MG TAB PO SCH
[2024-11-05 09:19] VITALS: BP 113/76
[2024-11-05] MEDS ORDERED: ATORVASTATIN CA40 MG PO (09:23)
[2024-11-05] MEDS ORDERED: PAROXETINE HCL30 MG PO (09:23)
[2024-11-05] MEDS ORDERED: Ropivacaine HCl 0.5% 30 ML VIAL ONE (09:39)
[2024-11-05] MEDS ORDERED: DEXAMETHASONE SOD PHOS 4 MG/ML VIAL ONE ×2 (09:39→11:41)
[2024-11-05] MEDS ORDERED: LIDOCAINE HCL 2% 5 ML SDV ONE ×2 (09:39→11:20)
[2024-11-05] MEDS ORDERED: SODIUM CHLORIDE 0.9% 20 ML IV ONE (09:39)
[2024-11-05 09:47] LABS: BASOPHILS 1.5 % (0.1-1.2); BASOPHILS, ABSOLUTE 0.10 K/uL (0.01-0.08); EOSINOPHILS 2.5 % (0.7-5.8); EOSINOPHILS, ABSOLUTE 0.17 K/uL (0.04-0.36); LYMPHOCYTES 21.2 % (19.3-51.7); MCH 32.2 PG (25.6-32.2); MCHC 33.7 g/dL (32.2-35.5); MCV 95.3 fL (79.4-94.8); MONOCYTES 7.0 % (4.7-12.5); MONOCYTES, ABSOLUTE 0.48 K/uL (0.24-0.86); NEUTROPHILS 67.4 % (34.0-71.1); NEUTROPHILS, ABSOLUTE 4.60 K/uL (1.56-6.13); RBC 4.29 M/uL (3.93-5.22)
[2024-11-05 10:03] LABS: ALT (SGPT) 12.0 U/L (14-59); AST (SGOT) 11.0 U/L (15-37); GLOMERULAR FILTRATION RATE,EST 74.0 mL/min (>60); PROTEIN, TOTAL 7.4 g/dL (6.4-8.2); UREA NITROGEN 19.0 mg/dL (7-18)
[2024-11-05] MEDS ORDERED: IBLOOD GLUCOSE TEST STRIP 1 EA TEST VI PRN (12:45)
[2024-11-05] MEDS ORDERED: NALOXONE HCL 0.4 MG SYR IV PRN (12:45)
[2024-11-05] MEDS ORDERED: fentaNYL citrate 50 MCG/ML SDV IV PRN (12:45)
--- NOTE | 2024-11-05 13:14 | NUR ---
11/05/24 1314 Noemy Fraire PATIENT WAKES COUGHING. SHE IS ENCOURAGED TO QUIT VAPING. PATIENT REPORTS HER ALLERGIES HAVE REALLY BEEN BOTHERING HER. PATIENT FOLLOWS INSTRUCTIONS TO LIFT HER HEAD OFF THE PILLOW. SURGICAL BONNET AND OXYGEN MASK ARE REMOVED.
[2024-11-05 13:41] VITALS: BP 110/48
--- NOTE | 2024-11-05 13:45 | NUR ---
PT TO DS FROM PACU VIA STRETCHER. PT IS A&O AND ASKING APPROPRIATE QUESTIONS AT THIS TIME. PT REPORTS PAIN TOLERABLE AT THIS TIME AND NO NAUSEA. PT O2 >90% VIA RA, RESPIRATIONS ARE EVEN AND UNLABORED, NO SIGNS OF DISTRESS. PT HAD INCONTINENT EPISODE AFTER OR CASE, AND INCONTINENCE EPISODE W/COUGHING ONCE BACK TO ROOM. FULL BED CHANGE BY THIS RN AND SOBIA RN, PT ROLLS AND ABLE TO MOVE LEGS WITHOUT DIFFICULTIES. CALL LIGHT WITHIN REACH, PT STATES NO FURTHER NEEDS AT THIS TIME.
--- NOTE | 2024-11-05 14:08 | NUR ---
PRN PAIN MED GIVEN, PT REPORTS PAIN IS NOW 9/10 AND INTOLERABLE AT THIS TIME. ICE PACK REPOSITIONED TO PAIN LOCATION. CALL LIGHT WITHIN REACH, NO FURTHER NEEDS OR QUESTIONS AT THIS TIME.
--- NOTE | 2024-11-05 14:10 | NUR ---
CPAP IN PLACE.
--- NOTE | 2024-11-05 14:37 | NUR ---
ADDITIONAL PUDDING PROVIDED, PT HAS TOLERATED ALL ORALS WITHOUT DIFFICULTY SWALLOWING. CALL LIGHT WITHIN REACH, PT STATES NO FURTHER NEEDS OR QUESTIONS AT THIS TIME.
[2024-11-05 14:59] VITALS: BP 134/75
[2024-11-05] MEDS ORDERED: ACETAMINOPHEN 500 MG TAB PO ONE (15:00)
[2024-11-05] MEDS ORDERED: TRANEXAMIC ACID IN NACL,ISO-OS 1,000 MG/100 ML PIGGYBACK IV SCH (15:00)
--- NOTE | 2024-11-05 15:05 | NUR ---
IN PT ROOM FOR VS AND ASSESMENT AND TYLENOL ADMIN. PT REPORTS PAIN HAS SLIGHTLY DECREASED TO 8/10. NO ACUTE CHANGES FROM PREVIOUS ASSESSMENT. PT REPORTS NO NAUSEA OR DIZZINESS. PT HAS CPAP IN PLACE AND STATES SHE OFTEN USES IT JUST AT REST D/T HER SLEEP APNEA BEING SO BAD. CALL LIGHT WITHIN REACH, PT STATES NO FURTHER NEEDS OR QUESTIONS AT THIS TIME.
[2024-11-05 15:54] VITALS: BP 139/69
--- NOTE | 2024-11-05 16:20 | NUR ---
PT TO MS RM115 VIA STRETCHER. PT STANDS AND PIVOTS TO BED W/OUT DIFFICULTY. THIS RN STANDBY ASSIST. PT STATES PAIN REMAINS TOLERABLE AT 6/10. REPORT GIVEN TO TIFFANIE GORE, SURGICAL SITE VISUALIZED W/TIFFANIE RN. CPOX, HEEL PROTECTORS, FOOT PUMPS, CRYO CUFF, ONQ REMAIN IN PLACE. ALL PT BELONGINGS IN HER POSSESSION. PT AND TIFFANIE RN REPORTS NO FURTHER NEEDS OR QUESTIONS AT THIS TIME. BED IN LOWEST POSITION, CALL LIGHT IN PLACE.
[2024-11-05 16:38] VITALS: BP 137/71
--- NOTE | 2024-11-05 16:51 | NUR ---
PATIENT TO MED SURG. PATIENT ABLE TO STAND AND TRANSFER TO BED. VSS. PATIENT HAS HOME CPAP AT BEDSIDE, PULSE OX IS ON, CRYO CUFF IS FULL OF ICE, FOOT SCD'S ARE ON. LEFT KNEE ACTICOAT IS CDI AND COVERED WITH GARDENIA WRAP, CRYO CUFF IS ON OVER GARDENIA WRAP. ON Q PUMP IS PRESENT AND SET TO 4. PATIENT RATED LEFT KNEE PAIN 6/10 AND THIS IS POST PO PAIN MEDICATIONS. NO OTHER NEEDS AT THIS TIME.
--- NOTE | 2024-11-05 16:58 | NUR ---
PATIENT BLOOD GLUCOSE IS 370. PLAN TO CALL DR. FALCON.
[2024-11-05] MEDS ORDERED: IBLOOD GLUCOSE TEST STRIP 1 EA TEST VI SCH (17:00)
[2024-11-05] MEDS ORDERED: INSULIN LISPRO 100 UNIT/ML ML SUB-Q ONE (17:15)
[2024-11-05] MEDS ORDERED: ALBUTEROL SULFATE 0.083% 3 ML VIAL INH PRN (17:15)
--- NOTE | 2024-11-05 17:28 | NUR ---
PATIENT GIVEN 12 UNITS OF SQ NOVOLOG, ONE TIME, FOR BG OF 370. DR. LACKEY NOTIFIED OF CONSULT. 60G CARB DIET, ACHS BG CHECKS AND MODERATE SLIDING SCALE ORDERED.
[2024-11-05] MEDS ORDERED: CEFAZOLIN SODIUM 3 GM in SODIUM CHLORIDE 0.9% 100 ML IV SCH (18:00)
--- NOTE | 2024-11-05 18:29 | NUR ---
PT RECEIVES DILAUDID ORDERED, SEE EMAR, FOR LEFT KNEE PAIN.
[2024-11-05] MEDS ORDERED: ALBUTEROL SULFATE 8 GM INH INH PRN (19:00)
--- NOTE | 2024-11-05 19:18 | NUR ---
GOT REPORT FROM DAY SHIFT NURSE. PATIENT HAS CRYOCUFF ON SITTING IN BED ON HER PHONE. DENIES ANY CARES AT THIS TIME.
--- NOTE | 2024-11-05 20:12 | NUR ---
PATIENT UP WITH VENEER JOINTER TO USE THE BEDSIDE COMMODE. NO TROUBLE GETTING UP AND TO COMMODE. PATIENT STATES HER PAIN IS 7/10 BUT COMING DOWN WITH THE MEDICATION GIVEN AT 1830. DENIES NEEDING ANYTHING ELSE AT THIS TIME. IV FLUSHED. PATIENT ON RA. CRYOCUFF, DRESSING C/D/I. PATIENT VERY HAPPY WITH THE WAY THINGS ARE WITH THIS KNEE REPLACEMENT. BED IN LOW POSITION. CALL LIGHT WITHIN REACH. DENIES ANY OTHER CARES AT THIS TIME.
[2024-11-05 20:30] VITALS: BP 122/70
[2024-11-05] MEDS ORDERED: CYCLOBENZAPRINE HCL 10 MG TAB PO SCH (21:00)
[2024-11-05] MEDS ORDERED: SENNOSIDES 1 TAB PO SCH (21:00)
[2024-11-05] MEDS ORDERED: ASPIRIN 325 MG TAB PO SCH (21:00)
[2024-11-05] MEDS ORDERED: INSULIN LISPRO 100 UNIT/ML ML SUB-Q SCH (21:00)
--- NOTE | 2024-11-05 22:50 | NUR ---
PATIENT GIVEN PAIN MEDICATIONS. CRYOCUFF FILLED WITH ICE. PATIENT VERY HUNGRY AND GIVEN A SANDWHICH BOX. PATIENT HAS TV ON.
--- NOTE | 2024-11-05 23:32 | NUR ---
PATIENT CURRENTLY SLEEPING WITH CPAP MACHINE ON. REGULAR RESPIRATIONS NOTED.
[2024-11-06] VITALS (15 sets, daily range): BP systolic 113–156; BP diastolic 54–90
--- NOTE | 2024-11-06 02:50 | NUR ---
PT AWAKENS EASILY, ON ROOM AIR, USING HOME CPAP, POST OP CPOX ON AT BEDSIDE, Q PUMPT L KNEE, CRYOCUFF IN PLACE. C/O 7/10 L KNEE PAIN, MEDICATED WITH DILAUDID 4MG. REPOSITIONS SELG WELL, TOLERATING IV ABX. PLEASANT AND COOPERATIVE
--- NOTE | 2024-11-06 06:11 | NUR ---
rESTING, EYES CLOSED, NO S/SX DISTRESS, USING HOME CPAP, POST OP CPOX ON AT BEDSIDE, CRYOCUFF TO L KNEE
--- NOTE | 2024-11-06 06:49 | OR ---
[facility] [address] [place], [place] [address] Signed DATE OF OPERATION: 11/05/2024 SURGEON: Radha London MD PREOPERATIVE DIAGNOSIS: Severe knee degenerative joint disease, left. POSTOPERATIVE DIAGNOSIS: Severe knee degenerative joint disease, left. PROCEDURE PERFORMED: Left total knee arthroplasty with Jose Roberto. FOREIGN BANKNOTE TELLER TRADER: Daina Au PA-C. Daina was present and critical for all portions of procedure. ANESTHESIA: Spinal. BLOOD LOSS: 175 mL. TOURNIQUET TIME: Zero. IMPLANTS: Roro Triathlon size 3 10 mm polyethylene and a 32 mm patella. BRIEF HISTORY: Fabienne is a 63-year-old female with progressive worsening of osteoarthritis in the left knee. She had undergone prior right total knee with good results and wished to proceed with left. Risks, benefits, and alternatives of surgery were discussed with her and she elected to proceed. DESCRIPTION OF PROCEDURE: Once consent was obtained, she was taken to the operating room. After adequate anesthesia, she was placed on the OR table. All downside pressure points were well padded. Hip bump was placed on the left. The left leg was prepped and draped in a standard sterile fashion. The knee was approached through standard anterior midline Electronically Signed By: RADHA LONDON MD 11/06/24 0649 PATIENT NAME: FABIENNE TELLEZ OPERATIVE REPORT DATE OF : 60 REPORT #: [id number] PHYSICIAN: RADHA LONDON MD PCP: ZAYNAB RAMSEY MD REPORT IS CONFIDENTIAL AND NOT TO BE RELEASED WITHOUT AUTHORIZATION [facility] [address], [place] [address] Signed incision, carried through skin and subcutaneous tissue. The skin flaps were developed medially and laterally. A low mid vastus arthrotomy was then performed and bleeders were cauterized as we went. The infrapatellar fat pad was excised. The MCL was elevated as a sleeve around the posteromedial corner. The navigation computer arrays were then placed in the distal femur and proximal tibia. The leg was registered with the computer followed by the fine anatomic points of the knee. The four ligamentous poses were then taken and slight changes were made to the prosthesis plan. The robot was then brought in. The four straight cuts and two angle cuts were made with care taken to protect the patellar tendon and MCL. The bony remnants were removed and osteophytes removed. Posterior osteophytes removed off the femur. The trials were then positioned. Knee was taken from 0-130 degrees with good stability. The patella was cut, sized, and drilled for a 32 mm patella and was noted to track well in flexion. The distal femoral drill holes on the femur were completed. The proximal tibia was then completed using the keel punch followed by the four drill holes. The prosthesis was then obtained. The tibia was impacted into position first followed by the polyethylene. The femur was then impacted into position. The knee was extended and loaded. The patella was clamped into position and again the patellar tracking was checked and found to be good. The knee was then irrigated using one bottle of Surgiphor followed by normal saline. The periarticular soft tissues were injected with 80 mL ropivacaine Toradol mixture. The On-Q pain pump was percutaneously placed into the adductor canal from the suprapatellar pouch. The arthrotomy was then closed using combination of #2 FiberWire, #2 Stratafix, subcutaneous tissue with 0 Stratafix and the skin with 3-0 Stratafix. The skin was then sealed with LiquiBand, Steri-Strips and dressed with Acticoat-7 dressing, ABD, and Sujit wrap. She tolerated the procedure well. All sponge, needle, and instrument counts were correct. Radha London MD BA/MODL /[id number] Copies: ~ Electronically Signed By: RADHA LONDON MD 11/06/24 0649 PATIENT NAME: FABIENNE TELLEZ OPERATIVE REPORT DATE OF : 60 REPORT #: [id number] PHYSICIAN: RADHA LONDON MD PCP: ZAYNAB RAMSEY MD REPORT IS CONFIDENTIAL AND NOT TO BE RELEASED WITHOUT AUTHORIZATION
[2024-11-06] MEDS ORDERED: NITROGLYCERIN0.4 MG SL (07:37)
[2024-11-06] MEDS ORDERED: TRULICITY3 MG/0.5 M SUB-Q (07:40)
[2024-11-06] MEDS ORDERED: INSULIN LISPRO 100 UNIT/ML ML SUB-Q SCH (08:00)
[2024-11-06] MEDS ORDERED: IBLOOD GLUCOSE TEST STRIP 1 EA TEST VI SCH (08:00)
--- NOTE | 2024-11-06 08:14 | NUR ---
Patient awake, alert and oriented x4, no acute distress. Patient reports 5/10 left knee pain, admin dilaudid 4mg po at this time. Dressing to left knee is CDI, polar ice in place over dressing. CMS intact to left leg.
--- NOTE | 2024-11-06 08:39 | NUR ---
HOURLY ROUNDING. PATIENT IS BACK IN BED AFTER USING THE RESTROOM BEDSUDE CAMMODE. APPEARS TO BE IN A GOOD MOOD, PATIENT REPORTS WANTING TO SIT IN RECLINER CHAIR AFTER LUNCH. AM CARE HAS BEEN COMPLETED AND ORAL CARE. NO REQUEST FROM PATIENT AT THIS TIME. CALL LIGHT PLACED WITHIN REACH
[2024-11-06] MEDS ORDERED: CETIRIZINE HCL 10 MG TAB PO SCH (09:00)
[2024-11-06] MEDS ORDERED: ATORVASTATIN 40 MG TAB PO SCH (09:00)
[2024-11-06] MEDS ORDERED: LEVOTHYROXINE SODIUM 175 MCG TAB PO SCH (09:00)
[2024-11-06] MEDS ORDERED: AMLODIPINE BESYLATE 10 MG TAB PO SCH (09:00)
--- NOTE | 2024-11-06 09:20 | NUR ---
MED REC COMPLETE
--- NOTE | 2024-11-06 11:02 | NUR ---
UR CLINICAL REVIEW: 2 MN FOR VERSALUIS-PER AERODYNAMIC CONSULTANT DOES NOT MEET INPT AT THIS TIME. WILL DISCUSS FURTHER DOCUMENTATION NEEDED WITH MD. [facility] IN[facility] 11/05/24 @ 9221 WILL UPDATE REG WHEN FURTHER DOCUMENTATION IS COMPLATED CLINICALS FAXED TO [facility] FOR AUTH REVIEW 11/07/24
--- NOTE | 2024-11-06 12:11 | NUR ---
Patient sitting up in chair eating lunch, tolerating well. Patient reports 9/10 left knee pain, admin dilaudid 8mg po at this time. Patient's left knee dressing remains CDI. Patient instructed to call for help, she reports her understanding.
--- NOTE | 2024-11-06 13:45 | NUR ---
Spoke with Fabienne. She was here in the past for her other knee surgery. Pt lives in [place] and wants to return to their Swing Bed at [facility]. Pt has all the DME Dr. London suggested. Chart was sent to [facility]. Pt lives in an apartment. Denies issues getting in or out. She has a history of a back injury and is disabled. 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 Pt plans on dc when she is medically cleared. She uses food boxes/food bank, has assist for utility costs. Pt denies other needs. Denies concern for safety. Daughters live out of town, but both assist her financially when she is short of income. Friend will transport to [place] when she is ready for dc.
--- NOTE | 2024-11-06 14:56 | NUR ---
PATIENT SITTING IN CHAIR ON HER PHONE. CALL LIGHT WITH IN REACH, NO NEEDS AT THIS TIME.
--- NOTE | 2024-11-06 15:23 | NUR ---
PATIENT UP TO AMBULATE WITH FWW. PT AMBULATED X1 LAP. PT TOLERATED THIS VERY WELL. PT BACK IN CHAIR, CRYOTHERAPY IN PLACE WITH FRESH ICE. REFILLED PT'S WATER. CALL LIGHT WITH IN REACH. NO NEEDS AT THIS TIME.
--- NOTE | 2024-11-06 17:13 | NUR ---
ANSWERED CALL LIGHT. PT REQUESTING PAIN MEDICATION. PT REPORTS HER LEFT KNEE PAIN IS 8/10. ADMINISTERED PAIN MEDICAITON PER APR. PT ALSO GIVEN HER INSULIN AT THIS TIME. PT IN CHAIR COLORING. PT HAS NO FURTHER NEEDS AT THIS TIME. CALL LIGHT WITH IN REACH.
--- NOTE | 2024-11-06 18:02 | NUR ---
HOURLY ROUNDING. PATIENT SITTING IN RECLINER CHAIR COLORING, NO REQUEST FROM PATIENT. CALL LIGHT PLACED WITHIN REACH
--- NOTE | 2024-11-06 19:34 | NUR ---
REPORT RECEIVED FROM DAY SHIFT RN. PT RESTING IN CHAIR. SAFETY PRECAUTIONS MAINTAINED. CALL LIGHT WITHIN REACH. WILL CONTINUE TO MONITOR.
--- NOTE | 2024-11-06 20:20 | NUR ---
PT ASSESSED AND MEDICATIONS GIVEN. VSS. PT UP AMBULATING IN HALLWAY WITH STAFF MEMBER, AND TOLERATING IT WELL. DR. FALCON CALLED AND ORDERED OBTAINED FOR TYLENOL PRN PER PATIENTS REQUEST. PAIN MANAGED WITH DILADID, TYLENOL AND Q-PUMP. BS 240, SLIDING SCALE INSULIN GIVEN. CRYO, NISREEN HOSE, AND FOOT SCD'S ON PATIENT. SAFETY PRECAUTIONS MAINTAINED. CALL LIGHT WITHIN REACH. WILL CONTINUE TO MONITOR.
[2024-11-06] MEDS ORDERED: ACETAMINOPHEN 500 MG TAB PO PRN (20:45)
[2024-11-07] VITALS (12 sets, daily range): BP systolic 108–149; BP diastolic 51–78
--- NOTE | 2024-11-07 06:08 | NUR ---
PT RESTED WELL DURING THE SHIFT. VSS. PT WORE HOME CPAP WHILE ASLEEP, SATING WELL. PAIN MANAGED WITH PO DILAUDID AND TYLENOL. CRYO, NISREEN HOSE, AND FOOT SCD'S REMAINED IN PLACE THROUGHOUT SHIFT. SAFETY PRECUATIONS MAINTAINED. CALL LIGHT WITHIN REACH. WILL CONTINUE TO MONITOR.
--- NOTE | 2024-11-07 08:21 | NUR ---
Patient reports she is nauseated, pt notably diaphoretic. Vital signs stable. Patient reports she did not eat with last dose of dilaudid. Dr. Schmitt at bedside. New order obtained for zofran 4mg iv every six hrs as needed for n/v. Admin zofran at this time. Very recent blood sugar in 170's. Patient's hob elevated, cool compress provided.
[2024-11-07] MEDS ORDERED: SENNOSIDES/DOCUSATE 1 EA TAB PO SCH (09:00)
[2024-11-07] MEDS ORDERED: POLYETHYLENE GLYCOL 3350 1 PACKET PO SCH (09:00)
--- NOTE | 2024-11-07 09:00 | NUR ---
Spoke with Fabienne. She is nauseated after taking pain med on an empty stomach. Denies any needs. Plans on dc to [facility] on DC. She wants to know if they have called. I will call today and check if auth has been requested.
--- NOTE | 2024-11-07 10:20 | NUR ---
Received a call from Shelly at [facility]. She requests more infor on pts insurance. Their business office states she does not have [employer]. I let them know, we received auth for pts hospital stay from [employer]. I will send them a different printout that includes the phone numbers and shows pt has [employer] and [employer]. Sheet faxed. They will request auth.
--- NOTE | 2024-11-07 11:27 | NUR ---
VISITED [facility]IR[facility]UAL C[facility] ROUNDS. PT APPEARED TO BE SLEEPING. DID NOT DISTURB. PROVIDED PRAYER.
--- NOTE | 2024-11-07 11:44 | NUR ---
REPORT RECIEVED FROM BAO LIANG. PATIENT SITTING UP IN HER CHAIR WITH HER EYES CLOSED. EVEN AND UNLABORED RESPIRATIONS NOTED. CALL LIGHT AND PERSONAL BELONGINGS ARE WITHIN REACH.
--- NOTE | 2024-11-07 12:35 | NUR ---
HOURLY ROUNDING. PATIENT IS SITTING IN THE RECLINER CHAIR, NO REQUEST AT THIS TIME. CALL LIGHT HAS BEEN PLACED WITHIN REACH
--- NOTE | 2024-11-07 12:43 | NUR ---
PT UP IN CHAIR WITH CPAP IN PLACE. PT GIVEN INSULIN PER SLIDING SCALE. ROOM TIDIED UP, BEDDING CHANGED. WARM BLANKET PROVIDED. CALL LIGHT WITHIN REACH, DENIES ANY OTHER NEEDS.
--- NOTE | 2024-11-07 13:00 | NUR ---
PATIENT SITTING UP IN HER CHAIR. FRESH ICE WATER PROVIDED. PATIENT WITHOUT FURTHER NEEDS AT THIS TIME. CALL LIGHT AND PERSONAL BELONGINGS ARE WITHIN REACH.
--- NOTE | 2024-11-07 14:36 | NUR ---
PATIENT SITTING UP IN HER CHAIR AND DENIES ANY PAIN AT THIS TIME. DAVID TIM IN ROOM ADDING MORE ICE TO CRYO CUFF. PATIENT WITHOUT FURTHER NEEDS FROM THIS RN AT THIS TIME. CALL LIGHT AND PERSONAL BELONGINGS ARE WITHIN REACH.
--- NOTE | 2024-11-07 15:32 | NUR ---
PATIENT GIVEN 8MG OF PO DILAUDID FOR 8/10 LEFT KNEE PAIN. NO OTHER NEEDS AT THIS TIME.
--- NOTE | 2024-11-07 17:10 | NUR ---
PATIENT MEDICATED PER EMAR. PATIENT SITTING UP IN HER CHAIR AND DENIES ANY FURTHER NEEDS AT THIS TIME. PATIENT REPORTS HER PAIN IS "DOING GREAT". CALL LIGHT AND PERSONAL BELONGINGS ARE WITHIN REACH. DINNER TRAY SET UP INFRONT OF PATIENT.
[2024-11-07] MEDS ORDERED: MAGNESIUM HYDROXIDE/AL HYDROX 30 ML CUP PO PRN (18:45)
--- NOTE | 2024-11-07 19:35 | NUR ---
REPORT RECEIVED FROM JOSE E GORE. PATIENT IN CHAIR, EYES OPEN, CHEST RISE EVEN AND UNLABORED. CALL LIGHT AND PERSONAL BELONGINGS IN REACH OF PATIENT. PATIENT DENIES CONCERNS AT THIS TIME.
--- NOTE | 2024-11-07 20:40 | NUR ---
PATIENT ASSISTED TO RESTROOM AND INTO BED. ASSESMENT COMPLETED. SCHEDULED MEDICATIONS ADMINISTERED. NISREEN HOSE, VENOUS FOOT PUMPS, HEEL PROTECTION, AND CRYO CUFF IN PLACE. PATIENT DENIES CONCERNS AT THIS TIME. CALL LIGHT AND PERSONAL BELONGINGS IN REACH OF PATIENT.
[2024-11-07] MEDS ORDERED: ATORVASTATIN 40 MG TAB PO SCH (21:00)
--- NOTE | 2024-11-07 21:40 | NUR ---
PATIENT IN BED WITH HOB RAISED, EYES OPEN, CHEST RISE EVEN AND UNLABORED. SCHEDULED MEDICATION ADMINISTERED. PATIENT DENIES CONCERNS AT THIS TIME. VENOUS FOOT PUMPS, NISREEN HOSE, CRYO CUFF, AND HEEL PROTECTION IN PLACE. CALL LIGHT AND PERSONAL BELONGINGS IN REACH OF PATIENT.
--- NOTE | 2024-11-07 23:48 | NUR ---
PATIENT IN BED, EYES OPEN, CHEST RISE EVEN AND UNLABORED. PATIENT REPORTS PAIN, PRN PAIN MEDICATIONS ADMINISTERED. CALL LIGHT AND PERSONAL BELONGINGS IN REACH OF PATIENT. PATIENT DENIES FURTHER CONCERNS AT THIS TIME.
[2024-11-08] VITALS (10 sets, daily range): BP systolic 110–144; BP diastolic 64–87
--- NOTE | 2024-11-08 02:05 | NUR ---
PATIENT IN BED, EYES CLOSED, CHEST RISE EVEN AND UNLABORED. CALL LIGHT AND PERSONAL BELONGINGS IN REACH OF PATIENT. NO APPARENT NEEDS NOTED AT THIS TIME.
--- NOTE | 2024-11-08 03:55 | NUR ---
PATIENT IN BED, EYES CLOSED, CHEST RISE EVEN AND UNLABORED. PATIENT'S OXYGEN SATURATION IS 82. I ASSISTED PATEINT TO PUT ON HER HOME CPAP, OXYGEN SATURATION IMPROVED TO 94. PATIENT EDUCATION PROVIDED REGARING IMPORTANCE OF USING CPAP DURRING SLEEP. PATIENT VERBALIZED UNDERSTANDING. PATIENT DENIES CONCERNS AT THIS TIME. CALL LIGHT AND PERSONAL BELONGINGS IN REACH OF PATIENT. VENOUS FOOT PUMPS, CPOX, NISREEN HOSE, HEEL PROTECTION, AND CRYO CUFF IN PLACE.
--- NOTE | 2024-11-08 05:46 | NUR ---
PATIENT IN BED, EYES CLOSED, CHEST RISE EVEN AND UNLABORED. ASSESMENT, VITAL SIGNS, MEWS, AND I AND O COMPLETED. PATIENT DENIES CONCERNS AT THIS TIME. CALL LIGHT AND PERSONAL BELONGINGS IN REACH OF PATIENT. CRYO CUFF, HEEL PROTECTION, NISREEN HOSE, VENOUS FOOT PUMPS, AND CPOX IN PLACE.
--- NOTE | 2024-11-08 06:47 | NUR ---
MD FALCON UPDATED ON PATIENT NOT HAVING BM SINCE BEFORE SURGERY. NO NEW ORDERS AT THIS TIME.
[2024-11-08] MEDS ORDERED: HYDROMORPHONE HC4 MG PO (06:51)
--- NOTE | 2024-11-08 07:20 | NUR ---
REPORT RECEIVED FROM MOTORBOAT MECHANIC INBOARD/OUTBOARD RN NAGA. PATIENT IS LYING IN BED WITH HOB ELEVATED. PATIENT WITH EYES OPEN AND RESPIRATIONS ARE EVEN AND UNLABORED. CPOX AT BEDSIDE. CALL LIGHT AND PERSONAL BELONGINGS ARE WITHIN REACH.
--- NOTE | 2024-11-08 09:15 | NUR ---
Request from Dr. London about auth for Fabienne. Notified Auth has not been received from [facility]. I will contact them midmorning.
--- NOTE | 2024-11-08 09:49 | NUR ---
CASE MANAGEMENT IS IN THE ROOM AT THIS TIME AND SPEAKING WITH PATIENT REGARDING DISCHARGE PLAN. PATIENT IS SITTING ON THE EDGE OF BED WITH EYES OPEN AND RESPIRATIONS ARE EVEN AND UNLABORED.
--- NOTE | 2024-11-08 10:15 | NUR ---
PATIENT IS LYING IN BED WITH HOB ELEVATED. PATIENT WITH EYES OPEN AND RESPIRATIONS ARE EVEN AND UNLABORED. TV IS ON. FULL ASSESSMENT COMPLETE AND DOCUMENTED IN THE CHART. PRN DILAUDID ADMINISTERED AT THIS TIME FOR PAIN IN THE LEFT KNEE RATED 8/10. CRYO CUFF, NISREEN HOSE, AND FOOT PUMPS IN PLACE. LEFT KNEE DRESSING IS CLEAN, DRY, AND INTACT. ONQ PUMP REMAINS NEXT TO THE PATIENT. PATIENT IS ON ROOM AIR WITH THE CPOX AAT BEDSIDE. LUNG SOUNDS ARE CLEAR THROUGHOUT. CARDIAC WITH NORMAL S1 AND S2 NOTED. RADIAL AND PEDAL PULSES ARE STRONG BILATERALLY. CAP REFILL IN THE UPPER AND LOWER EEXTREMITIES REMAINS LESS THAN 3 SECONDS BILATERALLY. EDEMA NOTED TO THE LEFT KNEE. PATIENT IS ALERT AND ORIENTED. PATIENT STATED NO FURTHER NEEDS AT THIS TIME. CALL LIGHT AND PERSONAL BELONGINGS ARE WITHIN REACH.
--- NOTE | 2024-11-08 11:00 | NUR ---
Called and spoke with Noemy Fraire at [facility]. They do not have auth at this time. She will contact me if they recieved. Asked by staff to speak with Andreamackenzie as she has called and ride and is dressed. In and updated Fabienne we do not have auth for a Swing Bed at this time. She states a friend was bringing someone to [place] from [place] and she was going to ride home with them. She states she can get a ride tomorrow. I again let her know, there may not be auth tomorrow either. It is up to the insurance company.
--- NOTE | 2024-11-08 11:09 | NUR ---
PATIENT IS AMBULATING IN THE HALLWAY WITH DAVID MEZA AND MAYA. PATIENT IS TOLERATING WELL.
--- NOTE | 2024-11-08 11:29 | NUR ---
PATIENT AND I WALKED TWO LAPS AROUND MED SURG.
--- NOTE | 2024-11-08 11:45 | NUR ---
VISITED DURING SPIRITUAL CARE ROUNDS. PT IN OVERALL GOOD SPIRITS, STATED DESIRE TO BRUSH TEETH, NO OTHER NEEDS. METAL SANDER PROVIDED SUPPORTIVE PRESENCE, HOSPITALITY, PRAYER, ADVOCATED FOR PT WITH NURSING STAFF, FACILITATED INTERACTION WITH THERAPY ANIMAL. PT EXPRESSED GRATITUDE, PERSEVERENCE.
--- NOTE | 2024-11-08 12:23 | NUR ---
PATIENT WAS ABLE TO INDEPENDENTLY COMPLETE HER BED BATH, CATIE AND YANIV HERNNADEZ'S PROVIDED PATIENT WITH SUPPLIES NEEDED. CALL LIGHT LEFT WITHIN REACH, PATIENT DID NOT NEED ANYTHING ELSE AT THIS TIME.
--- NOTE | 2024-11-08 13:05 | NUR ---
PT IS SITTING ON BED, WATCHING TV. RR EVEN AND UNLABORED. CALL LIGHT AND PERSONAL BELONGINGS ARE WITHIN REACH.
--- NOTE | 2024-11-08 14:05 | NUR ---
PATIENT RATED PAIN 8/10 IN THE LEFT KNEE. PRN DILAUDID AND TYLENOL ADMINISTERED PER THE EMAR. PATIENT IS WORKING WITH PHYSICAL THERAPY AT THIS TIME. IV SITE FLUSHED WITH 10 ML NORMAL SALINE AND IS SALINE LOCKED. IV DRESSING IS CLEAN, DRY AND INTACT. LEFT KNEE DRESSING REMAINS CLEAN, DRY, AND INTACT. ONQ PUMP REMAINS ON AND WITH THE PATIENT. PATIENT AND PHYSICAL THERAPY STATED NO FURTHER NEEDS AT THIS TIME. CALL LIGHT AND PERSONAL BELONGINGS ARE WITHIN REACH.
--- NOTE | 2024-11-08 14:47 | NUR ---
PATIENT IN CHAIR AT THIS TIME. ASSISTANT COUNTY ATTORNEY CHARTED VITALS AND I&O'S. ASSISTANT COUNTY ATTORNEY YANIV AND THIS ASSISTANT COUNTY ATTORNEY CHANGED PATIENTS LINENS. CALL LIGHT WITHIN REACH, NO FURTHER NEEDS.
--- NOTE | 2024-11-08 14:50 | NUR ---
Texted Noemy to check if they have received auth. She will have the business office call and let me know if and when they receive.
--- NOTE | 2024-11-08 15:07 | NUR ---
PATIENT IS SITTING IN THE CHAIR WITH BILATERAL LOWER EXTREMITIES ELEVATED. PATIENT WITH EYES OPEN AND RESPIRATIONS ARE EVEN AND UNLABORED. PATIENT IS ON ROOM AIR WITH THE CPOX AT BEDSIDE. PATIENT PHONE PLUGGED IN PER PATIENT REQUEST. PATIENT STATED NO FURTHER NEEDS AT THIS TIME. CALL LIGHT AND PERSONAL BELONGIGNS ARE WITHIN REACH.
--- NOTE | 2024-11-08 16:10 | NUR ---
PATIENT IS SITTING IN THE CHAIR WITH BILATERAL LOWER EXTREMITIES ELEVATED. PATIENT WITH EYES OPEN AND RESPIRATIONS ARE EVEN AND UNLABORED. PATIENT IS ON ROOM AIR WITH THE CPOX AT BEDSIDE. TV IS ON. CALL LIGHT AND PERSONAL BELONGINGS ARE WITHIN REACH.
--- NOTE | 2024-11-08 16:28 | NUR ---
Notified by Noemy at [facility], [facility] declined this pt for payment to [facility] for a Swing Bed. Info forwarded to Dr. London.
--- NOTE | 2024-11-08 16:49 | NUR ---
NOTIFIED OF PATIENT IV COMING OUT. GAVE TELEPHONE ORDER FOR NO IV SITE. THIS RN ALSO NOTIFED OF IV ZOFRAN. STATED THAT THIS RN CAN CHANGE THE ZOFRAN TO PO. WITH NO FURTHER ORDERS AT THIS TIME. CALL ENDED.
--- NOTE | 2024-11-08 18:04 | NUR ---
PATIENT IS LYING IN THE CHAIR WITH BILATERAL LOWER EXTREMITIES ELEVATED. PATIENT WITH EYES OPEN AND RESPIRATIONS ARE EVEN AND UNLABORED. TV IS ON. PATIENT STATED NO NEEDS AT THIS TIME. CALL LIGHT AND PERSONAL BELONGINGS ARE WITHIN REACH.
--- NOTE | 2024-11-08 19:45 | NUR ---
REPORT RECEIVED FROM JL GORE. PATIENT IN BED WITHOU HOB RAISED, EYES OPEN, CHEST RISE EVEN AND UNLABORED. SCDS, NISREEN HOSE, AND CRYO CUFF IN PLACE. PATIENT PROVIDED WITH WARM BLANKET AT HER REQUEST. PATIENT DENIES FURTHER CONCERNS AT THIS TIME. CALL LIGHT AND PERSONAL BELONGINGS IN REACH OF PATIENT.
--- NOTE | 2024-11-08 20:54 | NUR ---
evening scheduled meds along with prn pain medication given per request of primary rn. see emar. tobin skinner in room for evning vs and i&o's and hs susiuchwilma. call light in reach, no additional needs or concerns. cpox in place.
--- NOTE | 2024-11-08 21:15 | NUR ---
FRESH ICE PLACED IN CRYO CUFF. LINEN SKIN BARRIER IN PLACE.
--- NOTE | 2024-11-08 21:51 | NUR ---
CALL LIGHT ANSWERED. PT NEEDED TO USE BATHROOM. MATE CHIEF 1PA WITH FWW TO BATHROOM. PT VOIDED AND ASSISTED BACK TO BED. CRYO CUFF AND SCDS PLACED BAKC ON PT. PT REQUESTING A PAIN MED WHEN IT IS AVAILABLE. RN NOTIFED. PT STATES NO FURTHER NEEDS AT THIS TIME. CALL LIGHT WITHIN REACH.
--- NOTE | 2024-11-08 22:50 | NUR ---
PATIENT IN BED, EYES CLOSED, CHEST RISE EVEN AND UNLABORED. CALL LIGHT AND PERSONAL BELONGINGS IN REACH OF PATIENT. CRYO CUFF, NISREEN HOSE, GARDENIA WRAP AND HEEL PROTECTION IN PLACE. NO APPARENT NEEDS NOTED AT THIS TIME.
--- NOTE | 2024-11-09 00:15 | NUR ---
PATIENT IN BED, EYES OPEN, CHEST RISE EVEN AND UNLABORED. PATIENT REPORTS 5/10 PAIN, PRN PAIN MEDICATION ADMINISTERED PER PATIENT REQUEST. CRYO CUFF, NISREEN HOSE, AND HEEL PROTECTION IN PLACE. PATIENT DENIES FURTHER CONCERNS AT THIS TIME.
--- NOTE | 2024-11-09 02:11 | NUR ---
PATIENT IN BED, EYES CLOSED, CHEST RISE EVEN AND UNLABORED. CALL LIGHT AND PERSONAL BELONGINGS IN REACH OF PATIENT. NO APPARENT NEEDS NOTED AT THIS TIME.
--- NOTE | 2024-11-09 04:12 | NUR ---
PATIENT IN BED, EYES OPEN, CHEST RISE EVEN AND UNLABORED. CALL LIGHT AND PERSONAL BELONGINGS IN REACH OF PATIENT. CRYO CUFF, NISREEN HOSE, AND HEEL PROTECTION IN PLACE. NO APPARENT NEEDS NOTED AT THIS TIME.
[2024-11-09 06:15] VITALS: BP 135/84
[2024-11-09 06:38] VITALS: BP 135/84
--- NOTE | 2024-11-09 06:44 | NUR ---
PATIENT IN BED, EYES OPEN, CHEST RISE EVEN AND UNLABORED. CALL LIGHT AND PERSONAL BELONGINGS IN REACH OF PATIENT. PATIENT DENIES CONCERNS AT THIS TIME.
--- NOTE | 2024-11-09 07:04 | NUR ---
RECIEVED REPORT FROM RN'S JENELLE. PT IS RESTING IN BED WITH EYES CLOSED, RR IS EVEN AND UNLABORED. CPAP IS SECURELY ON FACE. CALL LIGHT AND PERSONAL BELONGINGS ARE WITHIN REACH.
[2024-11-09 08:57] VITALS: BP 133/74
[2024-11-09 08:59] VITALS: BP 133/74
--- NOTE | 2024-11-09 09:14 | NUR ---
PATIENT IS NOW WORKING WITH PHYSICAL THERAPY IN THE HALLWAY AT THIS TIME.
--- NOTE | 2024-11-09 09:50 | NUR ---
PATIENT IS SITTING IN THE CHAIR WITH BILATERAL LOWER EXTREMITIES ELEVATED. PATIENT IS COLORING A PICTURE WITH THE TV ON. FULL ASSESSMENT COMPLETE AND DOCUMENTED IN THE CHART. PATIENT IS ON ROOM AIR WITH THE CPOX AT BEDSIDE. PATIENT WITH NISREEN HOSE, FOOT PUMPS, AND CRYO CUFF IN PLACE. PATIENT RATED PAIN 5/10 IN THE LEFT KNEE AND IS NOT REQUESTING ANYTHING FOR PAIN AT THIS TIME. PATIENT WITH NO IV SITE. DRESSING TO THE LEFT KNEE REMAINS CLEAN, DRY, AND INTACT. RADIAL AND PEDAL PULSES ARE STRONG BILATERALLY. EDEMA NOTED TO THE LEFT KNEE. CARDIAC WITH NORMAL S1 AND S2 ON AUSCULTATION. SCATTERED SCARS AND BRUISES NOTED. PATIENT STATED NO FURTHER NEEDS AT THIS TIME. CALL LIGHT AND PERSONAL BELONGINGS ARE WITHIN REACH. PATIENT GIVEN WARM WATER AND WASH CLOTHS TO WIPE DOWN PER PATIENT REQUEST.
--- NOTE | 2024-11-09 10:20 | NUR ---
PT SITTING UP IN CHAIR COLORING. RR EVEN AND UNLABORED. CALL LIGHT AND PERSONAL BELONGINGS ARE WITHIN REACH.
[2024-11-09] MEDS ORDERED: SENNA LAX8.6 MG PO (11:39)
[2024-11-09] MEDS ORDERED: CEFPROZIL500 MG PO (11:39)
[2024-11-09] MEDS ORDERED: ASPIRIN325 MG PO (11:39)
--- NOTE | 2024-11-09 11:42 | NUR ---
PATIENT IS SITTING IN THE CHAIR WITH BILATERAL LOWER EXTREMITIES ELEVATED. PATIENT RATED PAIN 7/10 IN THE LEFT KNEE. PATIENT WITH EYES OPEN AND RESPIRATIONS ARE EVEN AND UNLABORED. PATIENT RESQUESTING PAIN MEDICATION WHEN 1200 INSULIN IS ADMINISTERED. PATIENT STATED NO FURTHER NEEDS AT THIS TIME.
--- NOTE | 2024-11-09 12:38 | NUR ---
PATIENT TO BE DC'D TO HOME TODAY. [employer] DENIED SNF STAY. PATIENT FEELS COMFORTABLE GOING HOME. NO CM NEEDS.
--- NOTE | 2024-11-09 13:19 | NUR ---
BAO CANSECO IS IN THE ROOM AND ASSISTING PATIENT BACK TO BED.
[2024-11-09 13:20] VITALS: BP 151/81
== END 2024-11-09 13:23 | disposition home or self-care (01) | DRG 470 ==
LOC: DS 08:55 → MS 16:10 → DS 16:11 → MS 16:12
PROVIDERS: ADMIT Specialist; ATTEND Specialist
PROC: 3E03329 Introduction of Other Anti-infective into Peripheral Vein, Percutaneous Approach (ICD-10-PCS; principal; 2024-11-05 11:15)
PROC: 8E0Y0CZ Robotic Assisted Procedure of Lower Extremity, Open Approach (ICD-10-PCS; principal; 2024-11-05 11:15)
PROC: 0SRD0JZ Replacement of Left Knee Joint with Synthetic Substitute, Open Approach (ICD-10-PCS; principal; 2024-11-05 11:15)
DX: M17.12 Unilateral primary osteoarthritis, left knee (principal); I10 Essential (primary) hypertension; E78.5 Hyperlipidemia, unspecified; K21.9 Gastro-esophageal reflux disease without esophagitis; E03.9 Hypothyroidism, unspecified; Z96.662 Presence of left artificial ankle joint; E11.9 Type 2 diabetes mellitus without complications; F39 Unspecified mood [affective] disorder; M25.762 Osteophyte, left knee; Z60.2 Problems related to living alone; M19.90 Unspecified osteoarthritis, unspecified site; Z88.5 Allergy status to narcotic agent; Z88.8 Allergy status to other drugs, medicaments and biological substances; Z91.030 Bee allergy status; Z79.899 Other long term (current) drug therapy; Z79.82 Long term (current) use of aspirin; Z79.890 Hormone replacement therapy; Z79.51 Long term (current) use of inhaled steroids; Z79.4 Long term (current) use of insulin
CPT/HCPCS: 01402; 36415; 64447; 64454; 73560; 76942; 80053; 85025; 94640; 94762; 94799; 97110; 97116; 97161; 97165; 97535; A9270; C1776; J0688; J1100; J1815; J2003; J2405; J2704; J2795; J7121; J7999